=== PATIENT | female | born 2000 | race Caucasian/White ===

== ENCOUNTER → 2018-08-12 13:48 | Outpatient (CLI) | payer OTHER, SELFPAY ==
--- NOTE | 2018-08-12 13:49 | US_ITS ---
US transvaginal HISTORY: Pelvic pain, painful intercourse ITS.REASON: PELVIC PAIN ORDERING PHYSICIAN: Kevin Mccoy MD PATIENT AGE: 18 years Comparison: None FINDINGS: The uterus is 7.3 x 4 x 5.6 cm with a combined endometrial thickness of 1 cm. The uterus is retroverted. There is fluid within the endometrial cavity with slight increased echogenicity. Right ovary is 3 x 3 cm. Left ovary is 3.4 x 2.4 cm. There are multiple bilateral ovarian follicles. There is a small fluid around the uterus. IMPRESSION: 1. Retroverted uterus with fluid in the endometrial cavity. 2. Polycystic appearance of the ovaries small amount fluid in the pelvis
== END ==
PROVIDERS: PCP Family Medicine; Visit Provider Obstetrics & Gynecology
DX: R10.2 Pelvic and perineal pain (principal)
CPT/HCPCS: 76830

== ENCOUNTER → 2018-08-16 11:31 | Outpatient (CLI) | payer OTHER, SELFPAY ==
[2018-08-16 12:41] LABS: Thyroid Stimulating Hormone 1.21 uIU/ml (0.516-4.13)
[2018-08-20 09:54] LABS: Prolactin 20.1 ng/mL (4.8-23.3)
== END ==
PROVIDERS: Visit Provider Obstetrics & Gynecology
DX: N64.3 Galactorrhea not associated with childbirth (principal); N39.0 Urinary tract infection, site not specified
CPT/HCPCS: 36415; 84146; 84443; 87086

== ENCOUNTER 2019-10-16 14:13 | Emergency (ER) | payer OTHER, SELFPAY ==
[2019-10-16 14:20] VITALS: BP 118/75; PULSE 93; RESP 18; TEMP 36.5; O2SAT 100; BMI 21.8
--- NOTE | 2019-10-16 14:38 | HMH.COUGH ---
Cough Clinic HPI - History of Present Illness HPI:: 19 year old female presents to the cough clinic complaining of a 6 day history of nasal congestion, sore throat and cough. She had a fever on the first day of her symptoms of 101.8. She has no sick contacts. Home Medications: Home Medications Medication Instructions Recorded Confirmed Type Cefdinir [Omnicef 300mg Capsule] 300 mg PO BID #14 cap 10/16/19 Rx Allergies/Adverse Reactions: Allergies Allergy/AdvReac Type Severity Reaction Status Date / Time No Known Allergies Allergy Verified 03/01/19 14:02 Cough Clinic Triage - Symptoms Fever History: Yes (101.8) Chills: No Myalgia: No Nasal Drainage: Yes Sore Throat: Yes Productive Cough: Yes Non-productive Cough: No Ear or Sinus Pain: No Joint Pain: No Chest Pain: No Rash: No Shortness of Breath: No Nausea or Vomitting: No Headache: No Abdominal Pain: No Diarrhea: No - Exposure History Foreign Travel: No Direct Contact with COVID-19 Patient: No - Risk Factors Greater than 60 Years Old: No COPD: No Diabetes: No Heart Disease: No Home Oxygen Use: No Chronic Renal Disease: No Chronic Liver Disease: No Neurologic/Neurodevelopmental/intellectual disability: No Other Chronic Diseases: No If Female, currently : No Current Smoker: No Former Smoker: No Cough Clinic History Other Surgeries: Yes: No Previous Surgery Amputation: No Fractures: No Comment: P* C/S---09/2016 - Social History Smoking Status: Current every day smoker Alcohol Intake: never Alcohol Intake Frequency:: other Substance Use Type: denies use Occupational Status: unemployed Housing: house Household Members: family Family Hx:: No significant family history - Gastrointestinal Gastrointestingal: Denies: nausea, vomiting - Neurologic Neurologic: Denies dizziness Cough Clinic Exam - General General appearance: alert, in no apparent distress - Head Head exam: atraumatic, normocephalic, normal inspection - Eye Eye exam: Present: normal appearance, PERRL, EOMI - ENT ENT exam: Present: normal exam, mucous membranes moist, TM's normal bilaterally, normal external ear exam - Expanded ENT Exam Throat exam: Present: tonsillar erythema - Neck Neck exam: Present: normal inspection, full ROM, trachea midline, lymphadenopathy. Absent: meningismus - Respiratory Respiratory exam: Present: normal lung sounds bilaterally. Absent: respiratory distress - Cardiovascular Cardiovascular exam: Present: regular rate, normal rhythm. Absent: JVD - Extremities Exam Extremities exam: Present: normal inspection, full ROM, normal capillary refill. Absent: calf tenderness - Neurological Exam Neurological exam: Present: alert, oriented X3 - Skin Skin exam: Present: warm, dry, intact, normal color - Lymphatic Lymphatic Findings: no adenopathy Cough Clinic MDM Vital Signs: 10/16/19 14:20 10/16/19 15:02 Temperature 97.7 F 97.7 F Temperature Source Oral Oral Pulse Rate 93 H Pulse Rate [Right Brachial] 93 H Respiratory Rate 18 18 Blood Pressure 118/75 Blood Pressure [Right Arm] 118/75 Blood Pressure Mean [Right Arm] 89 Blood Pressure Source Automatic Cuff Blood Pressure Source [Right Arm] Automatic Cuff Blood Pressure Position Sitting Blood Pressure Position [Right Arm] Sitting 02 Sat by Pulse Oximetry 100 Oxygen Delivery Method Room Air - Lab Data Lab results reviewed: Yes: I reviewed the patient's lab results. Lab Results 10/16/19 14:28: WBC 11.4 H, RBC 4.04 L, Hgb 11.1 L, Hct 35.3 L, MCV 87.4, MCH 27.6, MCHC 31.6 L, RDW 12.5, Plt Count 386, MPV 8.5, Neut % (Auto) 77.6, Lymph % (Auto) 16.1, [place] % (Auto) 4.5, Eos % (Auto) 1.3, Baso % (Auto) 0.5, Neut # (Auto) 8.8 H, Lymph # (Auto) 1.8, [place] # (Auto) 0.5, Eos # (Auto) 0.2, Baso # (Auto) 0.1 10/16/19 14:28: Influenza Type A Ag Negative, Influenza Type B Ag Negative 10/16/19 14:28: Group A Strep Rapid Negative Orders (Tests/Meds):
[2019-10-16 14:40] LABS: Basophils # 0.1 K/mm3 (0-0.2); Basophils % 0.5 % (0.1-2.0); Eosinophils # 0.2 K/mm3 (0.0-0.4); Eosinophils % 1.3 % (0.1-12.0); Hematocrit 35.3 % (37.0-47.0); Hemoglobin 11.1 g/dL (12.2-16.2); Lymphocytes # 1.8 K/mm3 (0.7-4.5); Lymphocytes % 16.1 % (10-50); Mean Corpuscular HGB Conc 31.6 g/dL (31.8-35.4); Mean Corpuscular Hemoglobin 27.6 pg (27.0-31.2); Mean Corpuscular Volume 87.4 fl (81-99); Mean Platelet Volume 8.5 fl (7.4-10.4); Monocytes # 0.5 K/mm3 (0.1-1.0); Monocytes % 4.5 % (1.7-9.3); Neutrophils # 8.8 K/mm3 (1.8-7.8); Neutrophils % 77.6 % (37.0-80.0); Platelet Count 386 K/mm3 (142-424); Red Blood Count 4.04 M/mm3 (4.20-5.40); Red Cell Distribution Width 12.5 % (11.5-17.5); White Blood Count 11.4 K/mm3 (4.8-10.8)
[2019-10-16 14:41] LABS: Strep Scrn Group A (Rapid) Negative (Negative)
[2019-10-16 15:02] VITALS: BP 118/75; PULSE 93; RESP 18; TEMP 36.5; O2SAT 100
== END 2019-10-16 15:03 | disposition home or self-care (01) ==
PROVIDERS: Emergency Provider Family Medicine; PCP Pediatrics
DX: J06.9 Acute upper respiratory infection, unspecified (principal)
CPT/HCPCS: 36415; 85025; 87275; 87276; 87430; 99201; 99213

== ENCOUNTER 2019-10-25 14:43 | Emergency (ER) | payer OTHER, SELFPAY ==
[2019-10-25 14:54] VITALS: BP 115/74; PULSE 74; RESP 18; TEMP 36.9; O2SAT 100; BMI 21.8
[2019-10-25 15:24] LABS: Basophils # 0.1 K/mm3 (0-0.2); Eosinophils # 0.2 K/mm3 (0.0-0.4); Eosinophils % 1.5 % (0.1-12.0); Hematocrit 38.3 % (37.0-47.0); Hemoglobin 13.1 g/dL (12.2-16.2); Lymphocytes # 1.9 K/mm3 (0.7-4.5); Lymphocytes % 16.5 % (10-50); Mean Corpuscular HGB Conc 34.1 g/dL (31.8-35.4); Mean Corpuscular Hemoglobin 28.9 pg (27.0-31.2); Mean Corpuscular Volume 84.7 fl (81-99); Mean Platelet Volume 7.3 fl (7.4-10.4); Monocytes # 0.5 K/mm3 (0.1-1.0); Monocytes % 4.7 % (1.7-9.3); Neutrophils # 8.6 K/mm3 (1.8-7.8); Neutrophils % 76.3 % (37.0-80.0); Platelet Count 484 K/mm3 (142-424); Red Blood Count 4.53 M/mm3 (4.20-5.40); Red Cell Distribution Width 12.2 % (11.5-17.5); White Blood Count 11.3 K/mm3 (4.8-10.8)
[2019-10-25 15:31] LABS: Microscopic, Urine URINE MICROSCOPIC (MICROSCOPIC)
[2019-10-25 15:32] LABS: Alanine Aminotransferase 11 U/L (12-78); Albumin Level 4.9 g/dl (3.5-5.0); Albumin/Globulin Ratio 1.5 (1.1-1.8); Alkaline Phosphatase 54 U/L (38-126); Anion Gap 12.7 mEq/L (5-15); Aspartate Amino Transferase 24 U/L (14-36); Bilirubin,Total 0.5 mg/dl (0.2-1.3); Blood Urea Nitrogen 14 mg/dl (7-17); Calcium 10.3 mg/dl (8.4-10.2); Carbon Dioxide 26 mmol/L (22.0-30.0); Chloride 106 mmol/L (98-107); Creatinine Clearance Estimated 115 mL/min (50-200); Estimated Glomerular Filt Rate 126 ml/min (>60); GFR (African American) 153 ML/MIN (>60); Globulin 3.3 g/dL (1.3-3.2); Glucose 83 mg/dl (74-100); Potassium 3.7 mmoL/L (3.5-5.1); Sodium 141 mmol/L (136-145); Total Protein,Serum 8.2 g/dl (6.3-8.2)
[2019-10-25 15:35] LABS: Appearance,Urine CLEAR (Clear); Bilirubin,Urine Negative (Negative); Blood, Urine 1+ (Negative); Color,Urine YELLOW (Yellow); Glucose,Urine (UA) Negative (Negative); Ketones,Urine Negative (Negative); Leukocyte Esterase,Urine 1+ (Negative); Nitrate,Urine Negative (Negative); PH,Urine 7.5 (5.0-8.5); Protein,Urine Negative (Negative); Urine Pregnancy, HCG Qual. Negative (Negative); Urobilinogen,Urine 0.2 EU/dl (0.2)
--- NOTE | 2019-10-25 15:38 | CT_ITS ---
PROCEDURE: CT ABDOMEN PELVIS W CON CLINICAL INDICATION: abd pain Periumbilical pain COMPARISON: No exams were available for comparison TECHNIQUE: IV Contrast: 75ML OPTIRAY 350 Oral Contrast none Axial images obtained with sagittal and coronal reformats. All CT scans at the facility use one or more dose reduction, viz: automated exposure control, ma/kV adjustment per patient size (including targeted exams where dose is matched to indication, i.e. head), or iterative reconstruction technique. FINDINGS: LOWER THORAX: No acute finding ABDOMEN & PELVIS: The liver, spleen, adrenal glands, and pancreas and gallbladder have an unremarkable appearance. No renal or ureteral calculi. Mild prominence of the renal pelves on both sides left greater than right nonspecific. No intestinal obstruction or free air. No evidence of appendicitis. There is a small amount fluid in the pelvis which is nonspecific. No acute bony anomalies. IMPRESSION: No acute finding Dictated by: Sandro Mello MD 10/26/2019 09:12 Electronically signed by Sandro Mello MD in [place] 10/26/2019 09:12
[2019-10-25 15:40] LABS: Squamous Epithelial Cell,Urine 20-50 #/hpf (0-5)
[2019-10-25 15:51] LABS: Amylase 97 U/L (30-110); Lipase 110 U/L (23-300)
--- NOTE | 2019-10-25 16:08 | HMH.EDGENADL ---
ED Disposition Clinical Impression: Periumbilical pain Disposition: Home, Self-Care Condition on Discharge: Good Instructions: DI for Abdominal Pain-Adult Additional Instructions: Ibuprofen or Tylenol for pain. Follow-up urine culture result from your primary care doctor in 2 to 3 days. Additional instructions for ABDOMINAL PAIN: See your physician as soon as possible for further evaluation. Return immediately if worsening abdominal pain, vomiting, shortness of breath, fever, vomiting of blood or abdominal distention. Referrals: Adam Proctor [Primary Care Provider] - Forms: Work/School Release - Critical Care Critical Care Time: No Attestation: On 10/25/19, the high probability of a clinically significant, sudden or life threatening deterioration of the following system(s) required my full and direct attention, intervention and personal management. The time I documented below is in addition to time spent performing reported procedures but includes the following listed in this critical care notation. Medical Decision Making - Medical Records Medical records reviewed: Yes: I reviewed the patient's medical records. - Kelvin Inquiry Pt receiving controlled substance: No Vital Signs: 10/25/19 14:54 Temperature 98.4 F Temperature Source Oral Pulse Rate [Left Brachial] 74 Respiratory Rate 18 Blood Pressure [Left Arm] 115/74 Blood Pressure Mean [Left Arm] 87 Blood Pressure Source [Left Arm] Automatic Cuff Blood Pressure Position [Left Arm] Sitting 02 Sat by Pulse Oximetry 100 Oxygen Delivery Method Room Air - Lab Data Lab results reviewed: Yes: I reviewed the patient's lab results. Lab Results 10/25/19 15:02: Urine Color Yellow, Urine Appearance Clear, Urine pH 7.5, Ur Specific [place] 1.020, Urine Protein Negative, Urine Glucose (UA) Negative, Urine Ketones Negative, Urine Blood 1+, Urine Nitrate Negative, Urine Bilirubin Negative, Urine Urobilinogen 0.2, Ur Leukocyte Esterase 1+ A, Urine RBC 3-5, Urine WBC 5-10, Ur Squamous Epith Cells 20-50, Urine Bacteria None 10/25/19 15:02: Urine HCG, Qual Negative 10/25/19 15:12: WBC 11.3 H, RBC 4.53, Hgb 13.1, Hct 38.3, MCV 84.7, MCH 28.9, MCHC 34.1, RDW 12.2, Plt Count 484 H, MPV 7.3 L, Neut % (Auto) 76.3, Lymph % (Auto) 16.5, [place] % (Auto) 4.7, Eos % (Auto) 1.5, Baso % (Auto) 1.0, Neut # (Auto) 8.6 H, Lymph # (Auto) 1.9, [place] # (Auto) 0.5, Eos # (Auto) 0.2, Baso # (Auto) 0.1 10/25/19 15:12: Sodium 141, Potassium 3.7, Chloride 106, Carbon Dioxide 26, Anion Gap 12.7, BUN 14, Creatinine 0.60, Estimated Creat Clear 115, Estimated GFR 126, Est GFR ( Amer) 153, Glucose 83, Calcium 10.3 H, Total Bilirubin 0.5, AST 24, ALT 11 L, Alkaline Phosphatase 54, Total Protein 8.2, Albumin 4.9, Globulin 3.3 H, Albumin/Globulin Ratio 1.5 10/25/19 15:12: Amylase 97, Lipase 110 Result diagrams: 10/25/19 15:12 10/25/19 15:12 Orders (Tests/Meds): ED MEDICATIONS Discontinued Medications Generic Name Dose Route Start Last Admin Trade Name Freq PRN Reason Stop Dose Admin Ioversol 75 ml 10/25/19 15:53 10/25/19 15:53 Rad-Optiray 350 100ml Vial IV 10/25/19 15:54 75 ml ONCE ONE Administration Protocol Sodium Chloride 10 ml 10/25/19 15:53 10/25/19 15:53 Rad-Saline Flush 10ml Syringe IV 10/25/19 15:54 10 ml ONCE ONE Administration ORDERS Category Date Time Status CT abdomen pelvis w con Stat Cat Scan 10/25/19 15:38 Taken Urine Culture Stat Micro 10/25/19 15:02 Received - CT Data CT Scan: Abdomen, Pelvis Time Received: 16:29 ([facility] fax) ED CT Reviewed: Yes: I have viewed the radiologist's interpretation Findings Narrative: Normal appendix Small bowel wall thickening without surrounding inflammation, which may represent incomplete distention or limited enteritis Small amount of free fluid dependently in the pelvis, nonspecific, but usually physiologic. No localized abscess. No other acute disease seen. General Adult HPI
[2019-10-25 16:51] VITALS: BP 112/64; PULSE 74; RESP 16; TEMP 36.6; O2SAT 98
== END 2019-10-25 16:53 | disposition home or self-care (01) ==
PROVIDERS: Emergency Provider Emergency Medicine; PCP Pediatrics
DX: R10.33 Periumbilical pain (principal)
CPT/HCPCS: 74177; 80053; 81001; 81025; 82150; 83690; 85025; 87086; 99283; Q9967

== ENCOUNTER → 2021-06-30 17:00 | Outpatient (CLI) | payer OTHER, SELFPAY ==
[2021-06-30 19:30] LABS: HCG,Quantitative 626 mIU/ml (0-5.42)
== END ==
PROVIDERS: Visit Provider Nurse Practitioner Obstetrics & Gynecology
DX: Z32.00 Encounter for pregnancy test, result unknown (principal)
CPT/HCPCS: 84702

== ENCOUNTER → 2021-07-18 15:20 | Outpatient (CLI) | payer OTHER, SELFPAY ==
[2021-07-18 15:57] LABS: Basophils # 0.1 K/mm3 (0-0.2); Basophils % 0.9 % (0.1-2.0); Eosinophils # 0.1 K/mm3 (0.0-0.4); Eosinophils % 1.2 % (0.1-12.0); Hematocrit 35.3 % (37.0-47.0); Hemoglobin 11.3 g/dL (12.2-16.2); Lymphocytes # 0.5 K/mm3 (0.7-4.5); Lymphocytes % 6.2 % (10-50); Mean Corpuscular HGB Conc 32.1 g/dL (31.8-35.4); Mean Corpuscular Hemoglobin 29.2 pg (27.0-31.2); Mean Corpuscular Volume 91.1 fl (81-99); Mean Platelet Volume 7.8 fl (7.4-10.4); Monocytes # 0.5 K/mm3 (0.1-1.0); Monocytes % 6.2 % (1.7-9.3); Neutrophils # 7.1 K/mm3 (1.8-7.8); Neutrophils % 85.5 % (37.0-80.0); Platelet Count 403 K/mm3 (142-424); Red Blood Count 3.88 M/mm3 (4.20-5.40); Red Cell Distribution Width 13.2 % (11.5-17.5); White Blood Count 8.3 K/mm3 (4.8-10.8)
[2021-07-18 16:01] LABS: MANUAL DIFFERENTIAL MANUAL DIFFERENTIAL (MANUAL DIFF)
[2021-07-18 16:56] LABS: Eosinophils % 1 % (0-3); Lymphocytes % 12 % (10-50); Monocytes % 9 % (2-9); Neutrophils % 75 % (42-76); Platelet Estimate Normal; RBC Morphology Normal; Total Cells Counted 100
[2021-07-20 08:14] LABS: HIV Screen 4th Generation wRfx Non Reactive (Non Reactive); HSV 2 IgG, Type Spec <0.91 index (0.00-0.90); Rubella Antibodies, IgG 1.16 index (Immune >0.99)
[2021-07-20 09:13] LABS: Hepatitis B Surface Antigen Negative (Negative); Hepatitis C Antibody <0.1 s/co ratio (0.0-0.9)
[2021-07-20 11:38] LABS: Rapid Plasma Reagin Ab Titer Non Reactive (NonRea<1:1)
== END ==
PROVIDERS: Visit Provider Nurse Practitioner Obstetrics & Gynecology
DX: Z34.90 Encounter for supervision of normal pregnancy, unspecified, unspecified trimester (principal)
CPT/HCPCS: 36415; 85007; 85025; 86592; 86695; 86703; 86762; 86790; 86850; 87340; 87380; G0432

== ENCOUNTER 2021-07-19 14:41 | Emergency (ER) | payer OTHER, SELFPAY ==
[2021-07-19 14:48] VITALS: BP 97/59; PULSE 63; RESP 16; TEMP 37.3; O2SAT 98; BMI 26.0
[2021-07-19 15:00] VITALS: BP 97/59; PULSE 63; RESP 16; TEMP 37.3; O2SAT 98; BMI 25.9
[2021-07-19 15:18] LABS: UTC Strep Screen (Rapid) Negative (Negative)
[2021-07-19 15:19] LABS: UTC Influenza A Antigen Negative (Negative); UTC Influenza B Antigen Negative (Negative)
--- NOTE | 2021-07-19 15:25 | HMH.EDUTC ---
[facility] Disposition Clinical Impression: Viral syndrome Disposition: Home, Self-Care Condition on Discharge: Good Instructions: DI for Fever (Symptom) -- Adult, Promethazine, DI for COVID-19 (Suspected or Confirmed ), Preventing the Spread of Coronavirus Discharge Instructions Additional Instructions: *Monitor Temp, Over the counter Motrin or Tylenol as directed/as needed Tylenol every 4 hours and Motrin every 6 hours (as long as your family doctor has told you that you can take it) for fever or pain. and straight to ER if unable to lower temp less than 101.0 after medication given *Warm salt water gargles may help to soothe the throat *Throat Lozenges *Warm fluids like tea with honey may help to soothe the throat *Sleep elevated *Humidifier/Vaporizer Take Phenergan as directed by your OBGYN if you have Nausea and Vomiting Make sure to drink plenty of fluids Your throat swab was sent for culture. Those results are typically sent to your primary care. Be sure to follow up in 2-3 days with your family doctor/primary care physician if no improvement so they can review those result and treat if necessary. If you don?t have a primary care doctor, I recommend you get one but in the mean time, you will have to return to a walk in clinic Follow up IMMEDIATELY for new or worsening symptoms or no Noticeable improvement over the next 48-72 hours. 911 for difficulty breathing or swallowing You were tested for today for COVID19 your test result should be back in the next 24-48 hours, you may check your COVID test result on the [facility] My Health Portal if you have trouble logging on you may call support for assistance You was given a handout with instructions for Self Quarantine and Self isolation for while you wait on test results and what to do if they are positive If you are positive the Health Dept will be contacting you also Make sure to take your Vitamins Vit. C Vit D and Zinc if you can take them Referrals: Erica Burton [Primary Care Provider] - As needed Forms: Work/School Release Medical Decision Making - Kelvin Inquiry Pt receiving controlled substance: No Kelvin was queried for this patient: No Vital Signs: 07/19/21 14:48 07/19/21 15:00 Temperature 99.1 F 99.1 F Temperature Source Oral Oral Pulse Rate [Radial] 63 63 Respiratory Rate 16 16 Blood Pressure [Right Arm] 97/59 L 97/59 L Blood Pressure Mean [Right Arm] 71 71 Blood Pressure Source [Right Arm] Automatic Cuff Blood Pressure Position [Right Arm] Sitting Sitting 02 Sat by Pulse Oximetry 98 98 Oxygen Delivery Method Room Air Room Air - Lab Data Lab results reviewed: Yes: I reviewed the patient's lab results. Lab Results 07/19/21 15:12: Influenza Type A Ag Negative, Influenza Type B Ag Negative 07/19/21 15:12: Strep Scn Rapid Clinic Negative Orders (Tests/Meds): ORDERS Category Date Time Status Covid-19 Nasal PCR ([facility]) Routine Lab 07/19/21 15:12 Received Strep Screen Confirmation Routine Micro 07/19/21 15:12 Received [facility] HPI - General Stated complaint: fever,sore throat,cough Time Seen by Provider: 07/19/21 15:26 Mode of Arrival: Ambulatory Source of Information: Patient Limitations: No Limitations Description of Symptoms (Recalled from Triage Doc. by RN): TO ED PER [facility] WITH C/O FEVER, CHILLS, GENERALIZED BODY ACHES, COUGH, SORETHROAT, HEADACHE STARTING YESTERDAY. PT STATES +PREG SEEN BY DR MARTINEZ YESTERDAY TOLD APPROX 7 WEEKS PREG. PT DENIES ANY ABD PAIN, VAG DISCHARGE. - History of Present Illness Provider Complaint: Patient state that she is 7wks OB States that she was fine yesterday and seen her OBGYN and then after getting home she started feeling achy all over, having fever, chills body aches sore throat and headache like she had the flu States that she has made suire to try to drink plenty of fluids but today she was still having fever on and off and feeling achy so she came in to get checked - Related Data Home Medications
[2021-07-19 15:55] VITALS: BP 102/60; PULSE 63; RESP 16; TEMP 37.3; O2SAT 98
== END 2021-07-19 16:01 | disposition home or self-care (01) ==
LOC: ER 14:49 → UTC 14:49
PROVIDERS: Emergency Provider Nurse Practitioner; PCP Family Medicine
DX: U07.1 COVID-19 (principal); B34.9 Viral infection, unspecified
CPT/HCPCS: 87804; 87880; 99203; C9803; G0463; U0003; U0005

== ENCOUNTER → 2021-07-27 13:01 | Outpatient (CLI) | payer OTHER, SELFPAY ==
--- NOTE | 2021-07-27 13:01 | US_ITS ---
FINAL REPORT CLINICAL HISTORY: US OB Before 14wks for DATES/Confirmation FINDINGS: TRANSABDOMINAL ULTRASOUND, Single intrauterine is present. A yolk sac is present. Cardiac activity is confirmed at 157 beats per minute. Appropriate amount of fluid is present. The ovaries are within normal limits. Growth parameters are as follows: CRL: 1.8 cm consistent with 8 weeks 3 days. Estimated gestational age: 8 weeks 3 days. IMPRESSION: Single living IUP with estimated gestational age of 8 weeks 3 days. Reviewed, Interpreted and Dictated by Messi Leon MD Transcribed by Feroz Owen Authenticated by Messi Leon MD on 07/27/2021 03:51:31 PM [facility]
== END ==
PROVIDERS: PCP Family Medicine; Visit Provider Nurse Practitioner Obstetrics & Gynecology
DX: O26.841 Uterine size-date discrepancy, first trimester (principal)
CPT/HCPCS: 76801

== ENCOUNTER → 2021-09-13 15:08 | Outpatient (CLI) | payer OTHER, SELFPAY | PROVIDERS: Visit Provider Nurse Practitioner Obstetrics & Gynecology | DX: Z34.90 Encounter for supervision of normal pregnancy, unspecified, unspecified trimester (principal); Z3A.15 15 weeks gestation of pregnancy | CPT/HCPCS: 36415 ==

== ENCOUNTER 2021-09-19 19:06 | Emergency (ER) | payer OTHER, SELFPAY ==
[2021-09-19 19:40] VITALS: BP 110/61; PULSE 109; RESP 16; TEMP 37.6; O2SAT 99; BMI 26.6
--- NOTE | 2021-09-19 19:54 | HMH.EDUTC ---
[facility] [place] Clinical Impression: Gastroenteritis Qualifiers: Weeks of gestation: 16 weeks Qualified Code(s): Z3A.16 - 16 weeks gestation of Disposition: Home, Self-Care Condition on Discharge: Good Instructions: DI for Viral Gastroenteritis -- Adult, Promethazine Additional Instructions: Drink plenty of fluids. Take tylenol for fever. Take the medications as directed. Follow up with your heavy repairer doctor. Call Dr. Phan's office in the morning to let them know you are having these symptoms. Also, follow up with your regular doctor. GO TO THE ER FOR ANY WORSENING SYMPTOMS Prescriptions: Promethazine HCl [Phenergan 25mg tab] 25 mg PO Q6H PRN #20 tab PRN Reason: Nausea And Vomiting Transmission Status: Received by [id number] Referrals: Erica Burton [Primary Care Provider] - Forms: Work/School Release Time of Disposition: 20:36 Medical Decision Making - Medical Records Medical records reviewed: No: I reviewed the patient's medical records. - Kelvin Inquiry Pt receiving controlled substance: No Vital Signs: 09/19/21 19:40 09/19/21 20:40 Temperature 99.6 F 98.9 F Temperature Source Oral Oral Pulse Rate 104 H Pulse Rate [Left Radial] 109 H Respiratory Rate 16 17 Blood Pressure 112/70 Blood Pressure [Right Arm] 110/61 Blood Pressure Mean [Right Arm] 77 02 Sat by Pulse Oximetry 99 Oxygen Delivery Method Room Air Orders (Tests/Meds): ED MEDICATIONS Discontinued Medications Generic Name Dose Route Start Last Admin Trade Name Freq PRN Reason Stop Dose Admin Promethazine HCl 25 mg 09/19/21 20:23 09/19/21 20:31 Promethazine Hcl 25mg/Ml 1ml Vial IM 09/19/21 20:24 25 mg ONCE ONE Administration Medical Decision Narrative: heart rate obtained with doppler is 152 and regular. [facility] HPI - General Stated complaint: vomiting,stomach Time Seen by Provider: 09/19/21 19:54 Mode of Arrival: Ambulatory Source of Information: Patient Limitations: No Limitations Description of Symptoms (Recalled from Triage Doc. by RN): pt to [facility] c/o vomiting since this morning HEENT Symptoms (Recalled from RN notes): No Resp Symptoms (Recalled from RN notes): No Skin Symptoms (Recalled from RN notes): No MS Symptoms (Recalled from RN notes): No Functional Status (Recalled from RN notes): na - History of Present Illness Provider Complaint: She states that since this morning she has had vomiting and diarrhea. Her had the same symptoms 3 days ago. She believes she has a stomach virus and she request a work excuse. She is 16 weeks . She denies any abdominal pain, back pain, vaginal bleeding or any other symptoms. She refuses to be transferred to the er. - Related Data Home Medications Medication Instructions Recorded Confirmed PNV 153-FA 400 mcg-om3 35 mg-dha tab PO 07/18/21 09/13/21 25 mg-epa 5 mg-fish oil chew tablet Previous Rx's Medication Instructions Recorded promethazine 12.5 mg tablet 12.5 mg PO TID #30 tab 08/16/21 Promethazine HCl [Phenergan 25mg 25 mg PO Q6H PRN #20 tab 09/19/21 tab] Allergies Allergy/AdvReac Type Severity Reaction Status Date / Time No Known Allergies Allergy Verified 09/13/21 14:04 - Worker's Comp Is this a Worker's Comp case?: No [facility] History - Hepatitis A Screen Drug use history?: No High risk sexual behaviors?: No History of sexually transmitted infection?: No Currently employed?: No Childcare worker?: No Do you have indoor plumbing?: Yes Do you have electricity?: Yes Attestation statement:: This patient has been screened for Hepatitis A risk factors. I have reviewed the patient's past medical history: Yes Other Surgeries: Yes: No Previous Surgery, Amputation: No Fractures: No Comment: P* C/S---09/2016 - Social History Smoking Status: Never smoker Alcohol Intake: never Alcohol Intake Frequency:: other Substance Use Type:
[2021-09-19 20:40] VITALS: BP 112/70; PULSE 104; RESP 17; TEMP 37.2; O2SAT 99
== END 2021-09-19 20:41 | disposition home or self-care (01) ==
PROVIDERS: Emergency Provider Nurse Practitioner Family; PCP Family Medicine
DX: K52.9 Noninfective gastroenteritis and colitis, unspecified (principal); Z3A.16 16 weeks gestation of pregnancy
CPT/HCPCS: 96372; 99213; G0463

== ENCOUNTER → 2021-10-17 13:15 | Outpatient (CLI) | payer OTHER, SELFPAY ==
--- NOTE | 2021-10-17 13:15 | US_ITS ---
FINAL REPORT CLINICAL HISTORY: US OB Complete Anatomy Scan 20 wk + FINDINGS: There is a single live intrauterine gestation. Presentation is breech. The cervix is closed and measures 4.4 cm. Placenta is anterior. Cardiac activity is confirmed at 146 bpm. Fetus is active. Three-vessel cord with satisfactory umbilical cord insertion. Four-chamber heart is noted. brain and ventricles are unremarkable. Chest and diaphragm are unremarkable. ABDOMEN: Both kidneys are unremarkable. Stomach is unremarkable. SPINE: No anomalies identified. Both arms and legs noted. AMNIOTIC FLUID: Appropriate amount. MEASUREMENTS: ULTRASOUND AGE: 20 weeks 3 days. GESTATION AGE: 20 weeks 1 days. ESTIMATED WEIGHT: 355 g GROWTH PERCENTILE: 63% BPD: 4.8 cm consistent with 20 weeks 5 days. OFD: 6.1 cm consistent with 20 weeks 5 days. HC: 17.3 cm consistent with 19 weeks 6 days. AC: 15.3 cm consistent with 20 weeks 4 days. FL: 3.4 cm consistent with 20 weeks 4 days. CEREBELLUM: 2.0 cm consistent with 20 weeks 4 days. HUMERUS: 3.2 cm consistent with 20 weeks 5 days. Nuchal fold: 2.7 cm HC/AC: 1.13 CI: 79% FL/BPD: 69% FL/AC: 22% IMPRESSION: Single living IUP with an ultrasound age of 20 weeks 3 days. Reviewed, Interpreted and Dictated by Que Galeano III, MD Transcribed by Feroz Owen Authenticated by Que Galeano III, MD on 10/17/2021 03:18:[address] [facility]
== END ==
PROVIDERS: PCP Family Medicine; Visit Provider Nurse Practitioner Obstetrics & Gynecology
DX: Z36.0 Encounter for antenatal screening for chromosomal anomalies (principal)
CPT/HCPCS: 76811

== ENCOUNTER → 2021-11-30 14:46 | Outpatient (CLI) | payer OTHER, SELFPAY | PROVIDERS: PCP Family Medicine; Visit Provider Nurse Practitioner Obstetrics & Gynecology | DX: Z34.90 Encounter for supervision of normal pregnancy, unspecified, unspecified trimester (principal) ==

== ENCOUNTER → 2021-12-01 14:27 | Outpatient (CLI) | payer OTHER, SELFPAY ==
[2021-12-01 15:11] LABS: Glucose,Fasting 80 mg/dl (74-100)
[2021-12-01 16:53] LABS: Glucose 1 Hour 158 mg/dL (74-100)
== END ==
PROVIDERS: PCP Family Medicine; Visit Provider Nurse Practitioner Obstetrics & Gynecology
DX: Z34.90 Encounter for supervision of normal pregnancy, unspecified, unspecified trimester (principal)
CPT/HCPCS: 36415; 82951

== ENCOUNTER → 2021-12-03 08:56 | Outpatient (CLI) | payer OTHER, SELFPAY ==
[2021-12-03 09:36] LABS: Glucose,Fasting 93 mg/dl (74-100)
[2021-12-03 11:44] LABS: Glucose 1 Hour 170 mg/dL (74-100)
[2021-12-03 11:59] LABS: Glucose 2 Hour 167 mg/dL (74-100)
[2021-12-03 14:14] LABS: Glucose 3 Hour 159 mg/dL (74-100)
== END ==
PROVIDERS: PCP Family Medicine; Visit Provider Nurse Practitioner Obstetrics & Gynecology
DX: Z34.90 Encounter for supervision of normal pregnancy, unspecified, unspecified trimester (principal)
CPT/HCPCS: 36415; 82951

== ENCOUNTER → 2021-12-19 12:01 | Outpatient (CLI) | payer OTHER, SELFPAY | PROVIDERS: Visit Provider Nurse Practitioner Obstetrics & Gynecology | DX: N39.0 Urinary tract infection, site not specified (principal) | CPT/HCPCS: 87086 ==

== ENCOUNTER → 2022-02-13 13:37 | Outpatient (CLI) | payer OTHER, SELFPAY ==
--- NOTE | 2022-02-13 13:37 | US_ITS ---
FINAL REPORT CLINICAL HISTORY: LGA; h/o gestational diabetes with this FINDINGS: There is a single live intrauterine gestation. Presentation is cephalic. The cervix is closed and measures 4.9 cm. Placenta is anterior, grade 2.. Cardiac activity is confirmed at 146 bpm. Fetus is active. CAREN: 13 cm, normal MEASUREMENTS: ULTRASOUND AGE: 31 weeks 1 day days. GESTATION AGE: 37 weeks 1 day days. ESTIMATED WEIGHT: 6 lb 13 oz GROWTH PERCENTILE: 54 BPD: 9.22 cm, 37 weeks 4 days. OFD: 11.21 cm, 37 weeks 1 days. HC: 32.24 cm, 36 weeks 3 days. AC: 33.18 cm, 37 weeks 1 days. FL: 7.24 cm, 37 weeks 1 days. HC/AC: 0.97 CI: 82% FL/BPD: 79% FL/AC: 22% BREATHIN MOVEMENT: 2 TONE: 2 FLUID VOLUME: 2 BPP SCORE: 8/8 IMPRESSION: Single living IUP with an ultrasound age of 31 weeks 1 days. BPP SCORE: 8/8 Reviewed, Interpreted and Dictated by Que Galeano III, MD Transcribed by Emeli Gonzalez Authenticated and . [facility]
== END ==
PROVIDERS: PCP Family Medicine; Visit Provider Nurse Practitioner Obstetrics & Gynecology
DX: O36.60X0 Maternal care for excessive fetal growth, unspecified trimester, not applicable or unspecified (principal)
CPT/HCPCS: 76811; 76819; 76820

== ENCOUNTER → 2022-02-14 13:29 | Outpatient (CLI) | payer OTHER, SELFPAY | PROVIDERS: Visit Provider Nurse Practitioner Obstetrics & Gynecology | DX: Z34.90 Encounter for supervision of normal pregnancy, unspecified, unspecified trimester (principal) | CPT/HCPCS: 86403 ==

== ENCOUNTER → 2022-02-25 11:44 | Outpatient (CLI) | payer OTHER, SELFPAY ==
[2022-02-25 12:13] LABS: Basophils # 0.2 K/mm3 (0-0.2); Basophils % 2.6 % (0.1-2.0); Eosinophils # 0.1 K/mm3 (0.0-0.4); Eosinophils % 1.2 % (0.1-12.0); Hematocrit 40.1 % (37.0-47.0); Lymphocytes # 1.3 K/mm3 (0.7-4.5); Lymphocytes % 15.2 % (10-50); Mean Corpuscular HGB Conc 32.3 g/dL (31.8-35.4); Mean Corpuscular Hemoglobin 30.3 pg (27.0-31.2); Mean Corpuscular Volume 93.8 fl (81-99); Mean Platelet Volume 8.5 fl (7.4-10.4); Monocytes # 0.6 K/mm3 (0.1-1.0); Monocytes % 6.7 % (1.7-9.3); Neutrophils # 6.5 K/mm3 (1.8-7.8); Neutrophils % 74.4 % (37.0-80.0); Platelet Count 363 K/mm3 (142-424); Red Blood Count 4.27 M/mm3 (4.20-5.40); Red Cell Distribution Width 14.4 % (11.5-17.5); White Blood Count 8.8 K/mm3 (4.8-10.8)
[2022-02-25 12:48] LABS: Alanine Aminotransferase 14 U/L (12-78); Albumin Level 3.4 g/dl (3.5-5.0); Albumin/Globulin Ratio 1.3 (1.1-1.8); Alkaline Phosphatase 263 U/L (38-126); Anion Gap 8.9 mEq/L (5-15); Aspartate Amino Transferase 25 U/L (14-36); Bilirubin,Total 0.2 mg/dl (0.2-1.3); Calcium 9.4 mg/dl (8.4-10.2); Carbon Dioxide 23 mmol/L (22.0-30.0); Chloride 107 mmol/L (98-107); Estimated Glomerular Filt Rate 196 ml/min (>60); GFR (African American) 237 ML/MIN (>60); Globulin 2.7 g/dL (1.3-3.2); Glucose 108 mg/dl (74-100); Potassium 3.9 mmoL/L (3.5-5.1); Sodium 135 mmol/L (136-145); Total Protein,Serum 6.1 g/dl (6.3-8.2)
[2022-02-25 13:06] LABS: Blood Urea Nitrogen < 2 mg/dl (7-17)
== END ==
PROVIDERS: PCP Family Medicine; Visit Provider Nurse Practitioner Obstetrics & Gynecology
DX: N92.0 Excessive and frequent menstruation with regular cycle (principal); Z3A.37 37 weeks gestation of pregnancy; Z34.90 Encounter for supervision of normal pregnancy, unspecified, unspecified trimester
CPT/HCPCS: 36415; 80053; 85025; C9803; U0003; U0005

== ENCOUNTER 2022-02-27 04:49 | Inpatient (IN) | payer OTHER, SELFPAY ==
[2022-02-27] VITALS (15 sets, daily range): BP systolic 114–135; BP diastolic 74–96; PULSE 75–113; RESP 10–18; TEMP 36.7–36.8; O2SAT 97–100; BMI 30.9
[2022-02-27 05:43] LABS: Coronavirus 19, PCR Not Detected (NotDetected); Influenza A, PCR Not Detected (NotDetected); Influenza B, PCR Not Detected (NotDetected); Microscopic, Urine URINE MICROSCOPIC (MICROSCOPIC)
[2022-02-27 05:45] LABS: Appearance,Urine CLEAR (Clear); Bilirubin,Urine Negative (Negative); Blood, Urine Negative (Negative); Color,Urine YELLOW (Yellow); Glucose,Urine (UA) Negative (Negative); Ketones,Urine Negative (Negative); Leukocyte Esterase,Urine 2+ (Negative); Nitrate,Urine Negative (Negative); Protein,Urine Negative (Negative); Urobilinogen,Urine 0.2 EU/dl (0.2)
[2022-02-27 05:48] LABS: Amorphous Sediment,Urine 1+ /lpf
[2022-02-27 05:59] LABS: Barbiturates Screen,Urine Negative ng/ml (<200)
[2022-02-27 06:00] LABS: Benzodiazepines Screen,Urine Negative ng/ml (<200)
[2022-02-27 06:02] LABS: Amphetamine/Metha Screen,Urine Negative ng/ml (<1000); Cannabinoid Screen,Urine Negative ng/ml (<50); Cocaine Screen,Urine Negative ng/ml (<300); Methadone Screen,Urine Negative ng/ml (<300)
[2022-02-27 06:03] LABS: Opiate Screen,Urine Negative ng/ml (<300)
[2022-02-27 06:04] LABS: Phencyclidine Screen,Urine Negative ng/ml (<25)
--- NOTE | 2022-02-27 07:03 | P.PN_ITS ---
[facility] Social History Smoking Status: Never smoker alcohol intake: never substance use type: denies use current occupational status: unemployed Travel in the last 8 weeks: None household members: family housing: house [facility] Anesthesia Checklist Patient Identification Patient Identification: Arm Band and Verbal (Name & ) Structural Data Admitted From: Inpatient Planned Operative Procedure/s: C/S Consent for Planned Operative Procedure(s) Verified: Yes NPO Status Verified Time NPO: 00:00 Additional verifications Patient : Yes Hx Blood Transfusions: Yes Airway Assessment C-Spine Mobility Assessed: Yes TMJ Mobility Assessed: Yes Dentition: Good Dentition Neurological Assessment Level of Consciousness: Awake Hx Seizures: No Numbness or tingling in extremities: No Anesthesia Plan Anesthesia Risk discussed: Yes Anesthesia Plan: Verified ASA Class: II Anesthesia Type: Spinal
--- NOTE | 2022-02-27 07:20 | HMH.PHAINT1 ---
Pharmacy Intervention Comments: MEDICATION RECONCILIATION COMPLETED ON PATIENT USING EXTERNAL FILL HISTORY FROM PHARMACY. -KINDRA CASAS, EUGENED
--- NOTE | 2022-02-27 09:17 | EXP.OP.NOTE ---
Date of procedure: 02/27/22 Pre-op Diagnosis:: Term , previous section, keloid scar Post-op Diagnosis:: Term , previous section, keloid scar, uterine atony, bladder varicosities, large for gestational age infant Procedure performed:: Repeat lower segment transverse section, removal of keloid scar, B-kingsley suture, Surgeon:: Gordon Phan MD Knapsack Sprayer(s):: Dr. Baker GLASS CUTTER HELPER:: Connor Morejon Anesthesia: spinal Estimated blood loss (mL): 1,130 Clinical Note:: She is a 22-year-old 2 para 1 at 39 weeks gestational age. She is had a previous section and as result of that was offered repeat lower segment transverse section at term. She also had a 1 cm wide keloid previous section scar that I elected to remove at the time of her surgery. Operative findings:: She delivered a liveborn male child at 8:56 AM on the morning of February 27, 2022. The baby weighed 8 pounds 15 ounces and had Apgars of 9 at 1 minute and 9 at 5 minutes. She had uterine atony post surgery with a boggy uterus and this required Methergine as well as a B-kingsley suture. Along the bladder flap she had significant varicosities that were very oozy post surgery. Ovaries appeared polycystic. Tubes appeared normal. She had a 1 cm wide keloid scar along the lower abdomen from her previous section. Operative note:: She was taken to the operating room where spinal anesthesia was found be adequate. She was prepped and draped in normal sterile fashion in the supine position with a leftward tilt. A Gregory catheter was in the bladder. A Pfannenstiel skin incision was made with knife then carried through to the underlying layer of fascia with cautery. I made a crescentic incision around the scar. The scar was removed. The fascia was opened in the midline with cautery and extended laterally using Bennett scissors. Joaquin clamps were applied to the superior aspect of the fascial incision which was tented up and the underlying rectus muscles dissected off using cautery. The Joaquin clamps were then applied to the inferior aspect of the fascial incision which in a similar fashion was tented up and the underlying rectus muscles dissected off using cautery. The rectus muscles were then in the midline, the peritoneum identified, and entered sharply with Metzenbaum scissors. This incision was then extended superiorly and inferiorly with cautery. We had good visualization of the bladder inferiorly. An Jadon retractor was then placed within the abdominal cavity. The bladder peritoneum was then opened in the midline and extended laterally using Metzenbaum scissors. A bladder flap was created digitally. Transverse incision was made through the uterine muscle to the amnion. This incision was then extended laterally using fingers traction. The amnion was entered sharply with knife. There was clear amniotic fluid. The infant's head was then delivered atraumatically. A loose nuchal cord was then reduced. This was followed by the anterior shoulder and the rest of the 's body atraumatically. The oropharynx and nasopharynx were bulb suctioned. The baby was vigorous and we allowed the cord to continue to pulsate for approximately 1 minute. The cord was then doubly clamped and cut. The infant was then handed off to Dr. Moore who assigned Apgars of 9 at 1 minute and 9 at 5 minutes. We then obtained cord blood. Using gentle traction on the cord and countertraction on the fundus I was able to easily deliver the placenta intact. It had a normal three-vessel cord. The uterus was then cleared of clots and debris . The uterine incision was then closed using running 0 Vicryl suture in a locked fashion. A second layer of the same suture was used to imbricate the first layer. The uterus was quite boggy so I elected to place a B-kingsley suture. She also received IM Methergine. There was significant oozing underneath the lul
--- NOTE | 2022-02-27 09:26 | P.PNANES_ITS ---
[facility] Anesthesia Record Part I Anesthesia Record I Intake, IV Amount: 2,000 Estimated blood loss (mL): 1,130 Urine output (mL): 150 Blood Products used (#): none Blood Pressure: 135/96 SaO2: 100 Pulse Rate: 79 Respiratory Rate: 16 Temperature: 98.1 F Patient is:: Awake and Stable Stable to PACU at:: 09:20
[2022-02-27 09:33] LABS: POC Glucose,Bedside 84 (70-110)
--- NOTE | 2022-02-27 10:04 | SUR.PHASEI ---
0940: Pt. QBL 1453. Pt. VS remain stable, pt. is asymptomatic. Moderate blood loss with clots expressed with fundal massage. 0945: Pt. QBL 1518. Pt. vitals remain stable, pt. is asymptomatic. Small blood clots with clots expressed with fundal massage. Dr. Phan called at this time and H&H ordered per protocol. 0956: Lab at bedside for blood draw. 1005: Dr. Phan informed of blood loss. No new orders at this time. Pt. remains stable without complaints. 1015: Detailed report called to OB. Pt. VS remains stable, pt. without any complaints.
[2022-02-27 10:17] LABS: Hematocrit 41.4 % (37.0-47.0); Hemoglobin 13.4 g/dL (12.2-16.2)
[2022-02-27 13:57] LABS: Microscopic,Cath URINE MICROSCOPIC (MICROSCOPIC)
[2022-02-27 14:00] LABS: Appearance,Urine/Cath CLEAR (Clear); Bilirubin,Cath Negative (Negative); Blood, Urine/Cath TRACE-I (Negative); Color,Urine/Cath YELLOW (Yellow); Glucose,Urine/Cath (UA) Negative (Negative); Ketones,Urine/Cath Negative (Negative); Leukocyte Esterase,Cath Negative (Negative); Nitrate,Cath Negative (Negative); Protein,Urine/Cath Negative (Negative); Specific Gravity, Urine/Cath 1.015 (1.005-1.030); Urobilinogen,Cath 0.2 EU/dl (0.2)
[2022-02-27 14:16] LABS: Bacteria,Urine/Cath TRACE /lpf; Squamous Epithelial Ur./Cath Occasional #/hpf (0-5); WBC,Urine/Cath Occasional #/hpf (0-3)
[2022-02-27 16:30] LABS: Hematocrit 33.3 % (37.0-47.0)
[2022-02-27 16:47] LABS: Hemoglobin 12.4 g/dL (12.2-16.2)
[2022-02-28 01:23] LABS: POC Glucose,Bedside 84 (70-110)
[2022-02-28 06:54] LABS: Basophils # 0.1 K/mm3 (0-0.2); Basophils % 0.3 % (0.1-2.0); Eosinophils # 0.1 K/mm3 (0.0-0.4); Eosinophils % 0.6 % (0.1-12.0); Hematocrit 29.8 % (37.0-47.0); Lymphocytes # 1.3 K/mm3 (0.7-4.5); Lymphocytes % 7.7 % (10-50); Mean Corpuscular HGB Conc 32.2 g/dL (31.8-35.4); Mean Corpuscular Hemoglobin 29.1 pg (27.0-31.2); Mean Corpuscular Volume 90.6 fl (81-99); Mean Platelet Volume 7.9 fl (7.4-10.4); Monocytes # 1.1 K/mm3 (0.1-1.0); Monocytes % 6.6 % (1.7-9.3); Neutrophils # 14.5 K/mm3 (1.8-7.8); Neutrophils % 84.8 % (37.0-80.0); Platelet Count 316 K/mm3 (142-424); Red Blood Count 3.29 M/mm3 (4.20-5.40); Red Cell Distribution Width 13.8 % (11.5-17.5); White Blood Count 17.1 K/mm3 (4.8-10.8)
[2022-02-28 07:02] LABS: MANUAL DIFFERENTIAL MANUAL DIFFERENTIAL (MANUAL DIFF)
[2022-02-28 07:05] LABS: Hemoglobin 9.6 g/dL (12.2-16.2)
[2022-02-28 07:18] LABS: Lymphocytes % 14 % (10-50); Monocytes % 5 % (2-9); Neutrophils % 81 % (42-76); Total Cells Counted 100
[2022-02-28 07:19] LABS: Anisocytosis 1+; Hypochromasia 1+; Platelet Estimate Normal
--- NOTE | 2022-02-28 07:19 | EXP.PHA.VTE ---
[facility] Pharmacy VTE Monitoring Patient Demographics Admission date: 02/27/22 Report Date: 02/28/22 Time: 07:19 Patient Allergies No Known Allergies Allergy (Verified 02/21/22 14:20) Height: 1.5 m Weight: 69.4 kg VTE Risk Labs: VTE Related Lab Results Hgb 9.6 g/dL (12.2-16.2) L D 02/28/22 06:35 Hct 29.8 % (37.0-47.0) L 02/28/22 06:35 Plt Count 316 K/mm3 (142-424) 02/28/22 06:35 Prophylaxis VTE Prophylaxis Ordered?: Yes Types of VTE Prophylaxis: IPCS Thigh High Location of Applied Device: Bilateral Lower Extremeties
--- NOTE | 2022-02-28 08:40 | EXP.OB.APHP ---
OB - H&P: HPI Antepartum History of Present Illness Chief complaint: Term , previous section History of present illness: She is a 22-year-old 2 para 1 at 39 weeks gestational age she had a previous section. As result of that she is offered repeat lower segment transverse section at term. History of Present Criteria for establishing EDC:: LMP confirmed by 1st trimester US care: good care Ultrasounds: normal 1st trimester US and normal mid trimester US Obstetrical complications: previous Labs Blood type: A (+) positive Rubella: immune RPR/VDRL: nonreactive GBS status: negative HBsAG: negative PFSH PFS Social History Smoking Status: Never smoker alcohol intake: never substance use type: denies use current occupational status: unemployed Travel in the last 8 weeks: None household members: family housing: house Review of Systems Review of Systems Review of systems:: pertinent systems reviewed and negative unless documented below Meds Home Medications and Allergies Home Medications Medication Instructions Recorded Confirmed Type PNV 153-FA 400 mcg-om3 35 mg-dha 2 tab PO DAILY Supplement 07/18/21 02/27/22 History 25 mg-epa 5 mg-fish oil chew tablet ( Gummies) ferrous sulfate 325 mg (65 mg 325 mg PO DAILY Supplement 02/27/22 02/27/22 History iron) tablet New Prescriptions to Start Prescriptions: Allergies Allergy/AdvReac Type Severity Reaction Status Date / Time No Known Allergies Allergy Verified 02/21/22 14:20 OB - H&P: Exam Physical Exam Vital signs: Temp Pulse Resp BP Pulse Ox 98.1 F 78 15 122/81 100 02/27/22 09:27 02/27/22 10:20 02/27/22 10:20 02/27/22 10:20 02/27/22 10:20 Constitutional no acute distress Routine HEENT Exam Head: Present normocephalic Eye: Present EOMI ENT: Present mucous membranes moist Routine Neck Exam Present supple Routine Chest/Breast/Axilla Exam Chest wall: Absent tenderness Routine Respiratory Exam Present normal respiratory effort and symmetric chest movement; Absent accessory muscle use Routine Cardiovascular Exam Present RRR Routine Abdominal Exam Present soft; Absent tenderness Routine Rectal Exam Patient deferred: visual exam Routine Exam Patient deferred: external exam Routine Extremities Exam Present full ROM; Absent cyanosis Routine Back/Spine/Pelvis Exam Back/Spine: Present full ROM Routine Skin Exam Present intact Routine Neurological Exam Present alert and oriented X3 Routine Psychiatric Exam Present normal affect OB - Results Labs Labs: Short CBC 02/27/22 02/27/22 02/28/22 Range/Units 10:13 16:20 06:35 WBC 17.1 H D (4.8-10.8) K/mm3 Hgb 13.4 12.4 9.6 L D (12.2-16.2) g/dL Hct 41.4 33.3 L 29.8 L (37.0-47.0) % Plt Count 316 (142-424) K/mm3 Urine 02/27/22 Range/Units 07:35 Urine Color Yellow (Yellow) Urine Appearance Clear (Clear) Urine pH 7.0 (5.0-8.5) Ur Specific [place] 1.015 (1.005-1.030) Urine Protein Negative (Negative) Urine Glucose (UA) Negative (Negative) OB - A/P Antepartum (1) History of : Status: Acute (2) Delivery by section: Status: Acute Additional Plan Planning to breastfeed?: Yes Plan: other
--- NOTE | 2022-02-28 16:53 | EXP.PN ---
Subjective *Date: 02/28/22 *Time: 16:55 Interval history: She continues to do well today. She is eating and drinking and ambulating. She is bottlefeeding. Her hemoglobin is 9.6 and it stable. Her blood pressures are stable. Her lochia is normal. Exam Data for Last 24 hours Vital signs and Labs for Last 24 Hours: Temp Pulse Resp BP Pulse Ox 98.1 F 78 15 122/81 100 02/27/22 09:27 02/27/22 10:20 02/27/22 10:20 02/27/22 10:20 02/27/22 10:20 Laboratory Results - last 24 hr 02/27/22 07:09: POC Glucose 84 02/28/22 06:35: WBC 17.1 H D, RBC 3.29 L, Hgb 9.6 L D, Hct 29.8 L, MCV 90.6, MCH 29.1, MCHC 32.2, RDW 13.8, Plt Count 316, MPV 7.9, Neut % (Auto) 84.8 H, Lymph % (Auto) 7.7 L, [place] % (Auto) 6.6, Eos % (Auto) 0.6, Baso % (Auto) 0.3, Neut # (Auto) 14.5 H, Lymph # (Auto) 1.3, [place] # (Auto) 1.1 H, Eos # (Auto) 0.1, Baso # (Auto) 0.1, Total Counted 100, Neutrophils % (Manual) 81 H, Lymphocytes % (Manual) 14, Monocytes % (Manual) 5, Platelet Estimate Normal, RBC Morphology Not Reportable, Hypochromasia 1+, Anisocytosis 1+ I & O for Last 24 hours: Intake & Output 02/26/22 02/27/22 02/28/22 03/01/22 11:59 11:59 11:59 11:59 Intake Total 1999 / 1999 Output Total 300 / 300 1100 / 1100 Balance 1700 / 1700 -1100 / -1100 Weight 153 lb 153 lb Microbiology Reports for the Last 24 Hours: Microbiology 02/27/22 05:35 Urine,Clean Catch Urine Culture - Preliminary Constitutional Constitutional: no acute distress *Routine HEENT Exam Head: Present normocephalic *Routine Abdominal Exam Abdominal: Present soft and surgical scars (Her incision is clean and dry); Absent tenderness Assessment and Plan *Assessment and plan (1) Delivery by section: Status: Acute Category: Surgical (2) History of : Status: Acute Category: Surgical Code(s): Z98.891 - History of uterine scar from previous surgery Assessment and plan all Dx Plan of Treatment: She is doing very well. We will see her back again in the morning and discharge her home tomorrow.
--- NOTE | 2022-03-01 08:22 | EXP.ANES.II ---
[facility] Anesthesia Record Part II Anesthesia Record Part II Discharge Time: 10:20 Destination: Obstetric PACU nurse assessment reviewed?: Yes Patient Condition:: Good Anesthesia Complications:: None Swallowing reflex intact?: Yes Cyanosis?: No Blood Pressure: 122/81 Pulse Rate: 78 Temperature: 98.1 F Mental Status: Alert & Oriented Pain level:: 0 Nausea and/or vomitting:: None Intake, IV Amount: 0
[2022-03-01 08:24] VITALS: BP 122/81; PULSE 78; TEMP 36.7
--- NOTE | 2022-03-01 09:06 | EXP.DC.SUM ---
General Admission date:: 02/27/22 Discharge date: 03/01/22 HPI HPI HPI: She is a 22-year-old 2 para 1 at 39 weeks gestational age. She is had a previous section and as result that was offered repeat lower segment transverse section at term. Hospital Course Hospital Course Hospital Course: February 19, 2022 she underwent a repeat lower segment transverse section. She delivered a liveborn male child at 7:56 AM. Baby weighed 8 pounds 15 ounces and had Apgars of 9 at 1 minute and 9 at 5 minutes. She has done well and has remained afebrile throughout hospitalization. She is eating and drinking and ambulating. She is bottlefeeding but would like to try breast-feeding when she gets home. She had excess blood loss at the time of her surgery but her hemoglobin on discharge was 9.6. She will be discharged home to follow-up with me in approximately 2 weeks time. She will continue with her vitamins and iron. She was given a prescription for Percocet 5/325 number 20 tablets. She was given the usual instructions with respect to limiting her activity, driving and sexual activity. She was given instructions with respect to wound care. Exam Data for Last 24 hours Vital signs and Labs for Last 24 Hours: Temp Pulse Resp BP Pulse Ox 98.1 F 78 15 122/81 100 03/01/22 08:24 03/01/22 08:24 02/27/22 10:20 03/01/22 08:24 02/27/22 10:20 I & O for Last 24 hours: Intake & Output 02/26/22 02/27/22 02/28/22 03/01/22 11:59 11:59 11:59 11:59 Intake Total 1999 / 1999 0 / 0 Output Total 300 / 300 1100 / 1100 Balance 1700 / 1700 -1100 / -1100 0 / 0 Weight 153 lb 153 lb Microbiology Reports for the Last 24 Hours: Microbiology 02/27/22 05:35 Urine,Clean Catch Urine Culture - Preliminary Constitutional Constitutional: no acute distress *Routine HEENT Exam Head: Present normocephalic Results Data Completed and Pending Labs on day of discharge: Preliminary micro results at discharge 02/27/22 05:35 Urine Culture - Preliminary Urine,Clean Catch DS: Diagnosis Discharge Diagnosis (1) Delivery by section: Status: Acute (2) History of : Status: Acute Meds Home Medications and Allergies Home Medications Medication Instructions Recorded Confirmed Type PNV 153-FA 400 mcg-om3 35 mg-dha 2 tab PO DAILY Supplement 07/18/21 02/27/22 History 25 mg-epa 5 mg-fish oil chew tablet ( Gummies) ferrous sulfate 325 mg (65 mg 325 mg PO DAILY Supplement 02/27/22 02/27/22 History iron) tablet oxycodone-acetaminophen 5 mg-325 1 tab PO Q4-6H PRN severe pain. 03/01/22 Rx mg tablet (Percocet) #20 tabs New Prescriptions to Start Prescriptions: oxycodone-acetaminophen [Percocet] Gordon Phan Allergies Allergy/AdvReac Type Severity Reaction Status Date / Time No Known Allergies Allergy Verified 02/21/22 14:20 Discharge Plan Disposition Patient Disposition: Home, Self-Care Discharge Order Discharge Orders: Discharge Order (Routine); Ordered 03/01/22 Ordered By: Gordon Phan Follow up Plan Prescriptions/Medication Reconciliation: New oxycodone-acetaminophen [Percocet] 5-325 mg Tablet 1 tab PO Q4-6H PRN (Reason: severe pain.) Qty: 20 0RF Continued Gummies 400 mcg-35 mg- 25 mg-5 mg tablet,chewable 2 tab PO DAILY ferrous sulfate 325 mg (65 mg iron) tablet 325 mg PO DAILY Problem Reconciliation Problems Reviewed?: Yes Patient Discharge Instructions Additional Instructions: Nothing in the vagina for 6 weeks. No tub baths for 6 weeks. Clean surgical site 2x a day, keep area clean and dry. Drink plenty of fluids. Patient Instructions: Depression, Hemorrhage, DI for , Catheter-associated Urinary Tract Infection, [facility] Post Discharge Instructions Providers Primary Care Provider: Berny
== END 2022-03-01 14:00 | disposition home or self-care (01) | DRG 788 ==
PROVIDERS: Admitting Provider Nurse Practitioner Obstetrics & Gynecology; PCP Family Medicine; Visit Provider Nurse Practitioner Obstetrics & Gynecology
PROC: 10D00Z1 Extraction of Products of Conception, Low, Open Approach (ICD-10-PCS; CPT 59514; principal; 2022-02-27 07:30)
DX: O34.211 Maternal care for low transverse scar from previous cesarean delivery (principal); N85.8 Other specified noninflammatory disorders of uterus; Z3A.39 39 weeks gestation of pregnancy; Z37.0 Single live birth; L91.0 Hypertrophic scar; L90.5 Scar conditions and fibrosis of skin; O75.89 Other specified complications of labor and delivery; O69.81X0 Labor and delivery complicated by cord around neck, without compression, not applicable or unspecified; I86.8 Varicose veins of other specified sites; O36.63X0 Maternal care for excessive fetal growth, third trimester, not applicable or unspecified
CPT/HCPCS: 59514; 36415; 59025; 80053; 80305; 81001; 82962; 85007; 85014; 85018; 85025; 86850; 87086; 94761; C9290; C9803; G0283; J2405; U0003; U0005

== ENCOUNTER 2022-09-04 12:38 | Day surgery (SDC) | payer OTHER, SELFPAY ==
[2022-09-04] VITALS (16 sets, daily range): BP systolic 111–133; BP diastolic 65–84; PULSE 80–120; RESP 12–22; TEMP 36.5–43; O2SAT 96–100; BMI 23.6
--- NOTE | 2022-09-04 12:48 | [facility].EDGENADL ---
Discharge Plan Disposition Patient Disposition: Admitted As Inpatient Prescriptions Prescriptions: No Action cyclobenzaprine 10 mg tablet 10 mg PO TID PRN (Reason: muscle spasm) Qty: 30 0RF methylprednisolone 4 mg tablets,dose pack See Rx Instructions PO PER PKG DIR Qty: 21 0RF Rx Instructions: PO PER PKG DIR Mirena 20 mcg/24 hours (8 yrs) 52 mg intrauterine device intrauterine Referrals Follow up/Referrals: Acacia Urbina APRN [Primary Care Provider] - See instructions Clinical Impressions Clinical Impression: Acute appendicitis Instructions Patient Instructions: DI for Acute Abdominal Pain Discharge ED Provider: Magalis Santos General Adult HPI General Chief complaint: Abdominal Pain Stated complaint: lower right side abdominal pain Time Seen by Provider: 09/04/22 12:48 History of Present Illness HPI narrative: Patient is a 22-year-old female presenting with right lower quadrant abdominal pain. States that began yesterday evening was periumbilical in nature associated with nausea and nonfocal. States that it has since migrated to her right lower quadrant. Slowly worsening no sudden component of this. She has had some spotting vaginal bleeding she is on an IUD had a baby last January and this has been irregular since that time. Denies any vaginal discharge. Denies any changes in bowel movements or urination. Denies any history of kidney stones or ovarian pathology. Pain is moderate at the moment. Her significant other in the room states that she had significant pain with any bump in the car ride over here. No fevers or chills. No history of appendectomy. Related Data Home Medications Medication Instructions Recorded Confirmed levonorgestrel 21 mcg/24 hours (8 intrauterine 04/18/22 07/18/22 yrs) 52 mg intrauterine device (Mirena) Previous Rx's Medication Instructions Recorded cyclobenzaprine 10 mg tablet 10 mg PO TID PRN muscle spasm #30 07/18/22 tabs methylprednisolone 4 mg tablets in See Rx Instructions PO PER PKG DIR 07/18/22 a dose pack #21 tabs Allergies Allergy/AdvReac Type Severity Reaction Status Date / Time No Known Allergies Allergy Verified 07/18/22 15:07 [facility] Disclaimer: The information contained in this section may have been updated after the patient was seen, as this information can be updated by other users. Surgical History History of History of delivery, antepartum Family History Other Asthma Heart attack Hypertension Substance abuse Social History (Updated 09/04/22 @ 13:30 by Sujatha Metzger RN) Smoking Status: Never smoker alcohol intake: never substance use type: denies use current occupational status: unemployed Travel in the last 8 weeks: None household members: family housing: house ROS Obtained: Yes All systems reviewed & no additional complaints except as documented Physical Exam General General appearance: alert Respiratory Respiratory exam: Present normal lung sounds bilaterally; Absent respiratory distress, wheezes or stridor Cardiovascular Cardiovascular exam: Present regular rate; Absent tachycardia Abdominal Exam Abdominal exam: Present other (Right lower quadrant tenderness palpation no rebound or guarding negative Rovsing's and obturators) Neurological Exam Neurological exam: Present alert and oriented X3 Medical Decision Making Kelvin Inquiry Pt receiving controlled substance: No Vital Signs: 09/04/22 12:39 09/04/22 13:00 09/04/22 13:30 Temperature 97.7 F Temperature Source Oral Pulse Rate 114 H 102 H Pulse Rate [Radial] 92 H Respiratory Rate 16 22 22 Blood Pressure 117/84 127/80 Blood Pressure [Right Arm] 114/77 Blood Pressure Mean 95 94 Blood Pressure Mean [Right Arm] 89 Blood Pressure Source [Right Arm] Automatic Cuff
--- NOTE | 2022-09-04 12:49 | PC.NURSE ---
DR MARTINEZ AT BEDSIDE
--- NOTE | 2022-09-04 12:52 | CT_ITS ---
FINAL REPORT CLINICAL HISTORY: RLQ abd pain- concern for appendix FINDINGS: CT OF THE ABDOMEN AND PELVIS WITH CONTRAST Axial CT images of the abdomen and pelvis were obtained after the administration of oral and iv contrast. Coronal reformatted images were also obtained and reviewed.This study was performed with techniques to keep radiation doses as low as reasonably achievable (ALARA). Individualized dose reduction techniques using automated exposure control or adjustment of mA and/or kV according to the patient's size were employed. Abdomen: The lung bases are clear. The heart is normal in size. The liver has an unremarkable appearance, without evidence of mass or biliary ductal dilatation. There is mild nonspecific gallbladder wall thickening. The spleen is unremarkable. No adrenal mass is present. The pancreas has an unremarkable appearance. The kidneys are normal, without evidence of mass or hydronephrosis. The aorta is normal in caliber. There is no free fluid or adenopathy. No mass or abnormal fluid collection is seen. Pelvis: The GI tract is without obstruction. The appendix is mildly enlarged measuring up to 7 mm with wall thickening. Findings are worrisome for early or mild appendicitis. The urinary bladder is unremarkable. An IUD is present. There is no evidence of mass or adenopathy. There is a small amount of pelvic free fluid which may be physiologic or reactive. IMPRESSION: Mildly enlarged appendix with wall thickening worrisome for early or mild appendicitis. Reviewed, Interpreted and Dictated by Que Galeano III, MD Transcribed by Norma Contreras Authenticated and [facility]
[2022-09-04 12:57] LABS: Microscopic, Urine URINE MICROSCOPIC (MICROSCOPIC)
[2022-09-04 12:58] LABS: Appearance,Urine SL CLOUDY (Clear); Bilirubin,Urine Negative (Negative); Blood, Urine 2+ (Negative); Color,Urine YELLOW (Yellow); Glucose,Urine (UA) Negative (Negative); Ketones,Urine Negative (Negative); Leukocyte Esterase,Urine 1+ (Negative); Nitrate,Urine Negative (Negative); PH,Urine 6.5 (5.0-8.5); Protein,Urine Negative (Negative); Specific Gravity, Urine 1.025 (1.005-1.030); Urobilinogen,Urine 0.2 EU/dl (0.2)
[2022-09-04 13:04] LABS: Urine Pregnancy, HCG Qual. Negative (Negative)
--- NOTE | 2022-09-04 13:10 | PC.NURSE ---
PT TO CT
--- NOTE | 2022-09-04 13:10 | PC.NURSE ---
PT MEDICATED PER EMAR, WARM BLANKET PROVIDED. UPDATED ON POC, NO FURTHER NEEDS AT THIS TIME
[2022-09-04 13:14] LABS: Bacteria,Urine Trace /lpf; RBC,Urine Occasional #/hpf (0-3)
[2022-09-04 13:24] LABS: Basophils % 0.4 % (0.1-2.0); Eosinophils # 0.1 K/mm3 (0.0-0.4); Eosinophils % 1.6 % (0.1-12.0); Hematocrit 37.5 % (37.0-47.0); Hemoglobin 12.5 g/dL (12.2-16.2); Lymphocytes # 0.9 K/mm3 (0.7-4.5); Lymphocytes % 12.9 % (10-50); Mean Corpuscular HGB Conc 33.2 g/dL (31.8-35.4); Mean Corpuscular Hemoglobin 28.5 pg (27.0-31.2); Mean Corpuscular Volume 85.9 fl (81-99); Mean Platelet Volume 7.3 fl (7.4-10.4); Monocytes # 0.5 K/mm3 (0.1-1.0); Monocytes % 6.8 % (1.7-9.3); Neutrophils # 5.7 K/mm3 (1.8-7.8); Neutrophils % 78.3 % (37.0-80.0); Platelet Count 387 K/mm3 (142-424); Red Blood Count 4.37 M/mm3 (4.20-5.40); Red Cell Distribution Width 13.4 % (11.5-17.5); White Blood Count 7.2 K/mm3 (4.8-10.8)
[2022-09-04 13:27] LABS: Alanine Aminotransferase 17 U/L (12-78); Albumin Level 4.2 g/dl (3.5-5.0); Albumin/Globulin Ratio 1.6 (1.1-1.8); Alkaline Phosphatase 71 U/L (38-126); Anion Gap 6.4 mEq/L (5-15); Aspartate Amino Transferase 22 U/L (14-36); Bilirubin,Total 0.6 mg/dl (0.2-1.3); Blood Urea Nitrogen 15 mg/dl (7-17); Calcium 9.4 mg/dl (8.4-10.2); Carbon Dioxide 29 mmol/L (22.0-30.0); Chloride 106 mmol/L (98-107); Creatinine Clearance Estimated 104 mL/min (50-200); Estimated Glomerular Filt Rate 103 ml/min (>60); GFR (African American) 124 ML/MIN (>60); Globulin 2.7 g/dL (1.3-3.2); Glucose 125 mg/dl (74-100); Potassium 4.4 mmoL/L (3.5-5.1); Sodium 137 mmol/L (136-145); Total Protein,Serum 6.9 g/dl (6.3-8.2)
--- NOTE | 2022-09-04 13:57 | PC.NURSE ---
PT ASSISTED TO BR
--- NOTE | 2022-09-04 14:56 | PC.NURSE ---
contacted rad to check on status of Ct result, staff states scan are being read at this time
--- NOTE | 2022-09-04 15:22 | PC.NURSE ---
gave ER pt preliminary Ct reading at this time
--- NOTE | 2022-09-04 15:29 | PC.NURSE ---
PT ASSISTED TO BR
[2022-09-04 15:31] LABS: Coronavirus 19, PCR Not Detected (NotDetected); Influenza A, PCR Not Detected (NotDetected); Influenza B, PCR Not Detected (NotDetected)
--- NOTE | 2022-09-04 15:34 | PC.NURSE ---
DR. MARTINEZ AT BEDSIDE TO UPDATE PT ON POC
--- NOTE | 2022-09-04 15:37 | PC.NURSE ---
paged Dr Pool
--- NOTE | 2022-09-04 15:53 | PC.NURSE ---
DR MARTINEZ SPEAKING WITH DR HOFFMANN
--- NOTE | 2022-09-04 16:13 | PC.NURSE ---
CONSENT SIGNED FOR SURGERY
--- NOTE | 2022-09-04 16:24 | PC.NURSE ---
DR HOFFMANN AT BS
--- NOTE | 2022-09-04 16:24 | PC.NURSE ---
DR HOFFMANN AT BEDSIDE
--- NOTE | 2022-09-04 16:38 | EXP.GEN.HP ---
HPI HPI HPI: Patient is a 22-year-old healthy female who presents to the emergency department this afternoon for persistent abdominal pain. She had developed yesterday evening after work mid abdominal and periumbilical pain with some mild nausea. Pain was diffuse and mild. It then became more localized into the right lower quadrant. She presented to the emergency department where she was seen and evaluated. Work-up included CT scan which reveals findings reportedly consistent with early appendicitis. Surgical consultation was obtained. [facility] Disclaimer: The information contained in this section may have been updated after the patient was seen, as this information can be updated by other users. Surgical History History of History of delivery, antepartum Family History Other Asthma Heart attack Hypertension Substance abuse Social History (Updated 09/04/22 @ 13:30 by Sujatha Metzger RN) Smoking Status: Never smoker alcohol intake: never substance use type: denies use current occupational status: unemployed Travel in the last 8 weeks: None household members: family housing: house Meds Home Medications and Allergies Home Medications Medication Instructions Recorded Confirmed Type levonorgestrel 21 mcg/24 hours (8 intrauterine 04/18/22 07/18/22 History yrs) 52 mg intrauterine device (Mirena) cyclobenzaprine 10 mg tablet 10 mg PO TID PRN muscle spasm #30 07/18/22 07/18/22 Rx tabs methylprednisolone 4 mg tablets in See Rx Instructions PO PER PKG DIR 07/18/22 07/18/22 Rx a dose pack #21 tabs New Prescriptions to Start Prescriptions: Allergies Allergy/AdvReac Type Severity Reaction Status Date / Time No Known Allergies Allergy Verified 07/18/22 15:07 Exam Data for Last 24 hours Vital signs and Labs for Last 24 Hours: Temp Pulse Resp BP Pulse Ox 97.7 F 96 H 20 111/69 98 09/04/22 12:39 09/04/22 15:00 09/04/22 15:00 09/04/22 15:00 09/04/22 15:00 Laboratory Results - last 24 hr 09/04/22 12:45: Urine Color Yellow, Urine Appearance Sl cloudy, Urine pH 6.5, Ur Specific [place] 1.025, Urine Protein Negative, Urine Glucose (UA) Negative, Urine Ketones Negative, Urine Blood 2+, Urine Nitrate Negative, Urine Bilirubin Negative, Urine Urobilinogen 0.2, Ur Leukocyte Esterase 1+ A, Urine RBC Occasional, Urine WBC 3-5, Ur Squamous Epith Cells 3-5, Urine Bacteria Trace 09/04/22 12:45: Urine HCG, Qual Negative 09/04/22 13:00: WBC 7.2, RBC 4.37, Hgb 12.5, Hct 37.5, MCV 85.9, MCH 28.5, MCHC 33.2, RDW 13.4, Plt Count 387, MPV 7.3 L, Neut % (Auto) 78.3, Lymph % (Auto) 12.9, [place] % (Auto) 6.8, Eos % (Auto) 1.6, Baso % (Auto) 0.4, Neut # (Auto) 5.7, Lymph # (Auto) 0.9, [place] # (Auto) 0.5, Eos # (Auto) 0.1, Baso # (Auto) 0.0 09/04/22 13:00: Sodium 137, Potassium 4.4, Chloride 106, Carbon Dioxide 29, Anion Gap 6.4, BUN 15, Creatinine 0.70, Estimated Creat Clear 104, Estimated GFR 103, Est GFR ( Amer) 124, Glucose 125 H, Calcium 9.4, Total Bilirubin 0.6, AST 22, ALT 17, Alkaline Phosphatase 71, Total Protein 6.9, Albumin 4.2, Globulin 2.7, Albumin/Globulin Ratio 1.6 09/04/22 15:26: SARS-CoV-2 (PCR) Not detected, Influenza A Untype (PCR) Not detected, Influenza Type B (PCR) Not detected I & O for Last 24 hours: Intake & Output 09/02/22 09/03/22 09/04/22 09/05/22 11:59 11:59 11:59 11:59 Weight 117 lb Constitutional Constitutional: no acute distress *Routine HEENT Exam Head: Present normocephalic Eye: Present EOMI ENT: Present mucous membranes moist *Routine Respiratory Exam Respiratory: Present CTA bilaterally *Routine Cardiovascular Exam Cardiovascular: Present RRR *Routine Abdominal Exam Abdominal: Present soft Comments: She has some tenderness in the right lower quadrant with voluntary guarding. *Routine Rectal Exam Rectal::
--- NOTE | 2022-09-04 17:45 | PC.NURSE ---
SURGERY AT BEDSIDE TO TAKE PT TO OR
--- NOTE | 2022-09-04 18:40 | P.PN_ITS ---
[facility] Disclaimer: The information contained in this section may have been updated after the patient was seen, as this information can be updated by other users. Surgical History History of History of delivery, antepartum Family History Other Asthma Heart attack Hypertension Substance abuse Social History (Updated 09/04/22 @ 13:30 by Sujatha Metzger RN) Smoking Status: Never smoker alcohol intake: never substance use type: denies use current occupational status: unemployed Travel in the last 8 weeks: None household members: family housing: house [facility] Anesthesia Checklist Patient Identification Patient Identification: Verbal (Name & ) Structural Data Admitted From: Emergency Dept Planned Operative Procedure/s: lap appy Consent for Planned Operative Procedure(s) Verified: Yes NPO Status Verified Time NPO: 11:00 Additional verifications Hx Blood Transfusions: Yes Airway Assessment C-Spine Mobility Assessed: Yes TMJ Mobility Assessed: Yes Dentition: Good Dentition Neurological Assessment Level of Consciousness: Awake, Alert and Appropriate Anesthesia Plan Anesthesia Risk discussed: Yes Anesthesia Plan: Verified ASA Class: I Anesthesia Type: General
--- NOTE | 2022-09-04 18:58 | EXP.OP.NOTE ---
Date of procedure: 09/04/22 Pre-op Diagnosis:: Acute appendicitis Post-op Diagnosis:: Same Procedure performed:: Laparoscopic appendectomy Surgeon:: Que Pool MD FLAME BRAZING MACHINE OPERATOR:: Shaq Beckman Anesthesia: GETA Estimated blood loss (mL): 10 Operative findings:: She had a somewhat edematous mildly indurated injected appendix consistent with early uncomplicated appendicitis. Operative note:: Consent was obtained and patient was taken to the operating room. She was positioned in a supine position. General anesthesia was induced via endotracheal tube. Gregory catheter was placed. Abdomen was prepped and draped in the standard surgical fashion. Subumbilical skin incision was made and while performing abdominal wall lift Veress needle was inserted. CO2 pneumoperitoneum was achieved to 15 mmHg. 12 mm optical trocar was inserted at the umbilicus. Intraperitoneal contents were visualized. She did have some pelvic adhesions from prior . She had 5 mm trocar inserted in the left lower abdomen due to adherent to enlarged uterus. 5 mm trocar was inserted in the right upper abdomen. 10 mm laparoscope was replaced with a 5 mm 30 degree laparoscope. Appendix was easily identified. It was edematous and somewhat indurated and injected. It was grasped with an endoscopic Laina. The mesoappendix was carefully divided with AMOL ultrasonic robotic eb. Dissection was carried down to the appendiceal base. The appendix was divided at its base with an endoscopic HERBIE linear cutting stapling device. Appendix was placed within an Endo Catch retrieval device removed from the peritoneal cavity via the umbilical trocar site. Very limited irrigation and suctioning was performed. There was good hemostasis and integrity of the staple line at the appendiceal stump. Trocars were then removed as CO2 pneumoperitoneum was evacuated. Fascia at the umbilicus was closed with a couple of interrupted 0 Vicryl sutures. Local anesthetic was infiltrated. Skin incision was closed with 4-0 Monocryl subcuticular fashion. Dermabond and dressings were applied. Condition: stable Disposition: PACU Complications:: None immediately apparent
--- NOTE | 2022-09-04 19:07 | EXP.ANES.I ---
[facility] Anesthesia Record Part I Anesthesia Record I Intake, IV Amount: 1,500 Estimated blood loss (mL): 0 Urine output (mL): 100 Blood Pressure: 124/74 SaO2: 96 Pulse Rate: 100 Respiratory Rate: 12 Temperature: 98 F Patient is:: Awake and Stable Stable to PACU at:: 19:05
[2022-09-04 22:12] LABS: Microscopic,Cath URINE MICROSCOPIC (MICROSCOPIC)
[2022-09-04 22:19] LABS: Appearance,Urine/Cath CLEAR (Clear); Bilirubin,Cath Negative (Negative); Blood, Urine/Cath Negative (Negative); Color,Urine/Cath YELLOW (Yellow); Glucose,Urine/Cath (UA) Negative (Negative); Ketones,Urine/Cath TRACE (Negative); Leukocyte Esterase,Cath Negative (Negative); Nitrate,Cath Negative (Negative); PH,Urine/Cath 6.5 (5.0-8.5); Protein,Urine/Cath Negative (Negative); Urobilinogen,Cath 0.2 EU/dl (0.2)
[2022-09-04 22:29] LABS: WBC,Urine/Cath Occasional #/hpf (0-3)
[2022-09-08 16:12] VITALS: BP 116/80; PULSE 80; TEMP 36.6
--- NOTE | 2022-09-08 16:12 | EXP.ANES.II ---
[facility] Anesthesia Record Part II Anesthesia Record Part II Discharge Time: 19:35 Destination: Surgical Day Care (OP Surgery) PACU nurse assessment reviewed?: Yes Patient Condition:: Good Anesthesia Complications:: None Swallowing reflex intact?: Yes Cyanosis?: No Blood Pressure: 116/80 Pulse Rate: 80 Temperature: 98 F Mental Status: Alert & Oriented Pain level:: 0 Nausea and/or vomitting:: None Intake, IV Amount: 0
== END 2022-09-04 20:15 | disposition home or self-care (01) ==
LOC: ER 15:37 → SDC 18:36
PROVIDERS: Emergency Provider Student in an Organized Health Care Education/Training Program; PCP Nurse Practitioner; Visit Provider Surgery
PROC: 0DTJ4ZZ Resection of Appendix, Percutaneous Endoscopic Approach (ICD-10-PCS; CPT 44970; principal; 2022-09-04 18:00)
DX: K35.80 Unspecified acute appendicitis (principal)
CPT/HCPCS: 47562; 74177; 80053; 81001; 81025; 85025; 87086; 96374; C9803; J2405; J2710; Q9967; U0003; U0005

== ENCOUNTER 2023-03-16 11:54 | Emergency (ER) | payer OTHER, SELFPAY ==
[2023-03-16 11:56] VITALS: BP 108/77; PULSE 89; RESP 17; TEMP 36.9; O2SAT 100; BMI 24.2
--- NOTE | 2023-03-16 12:10 | HMH.EDGENADL ---
Discharge Plan Disposition Patient Disposition: Home, Self-Care Prescriptions Prescriptions: No Action Mirena 20 mcg/24 hours (8 yrs) 52 mg intrauterine device intrauterine Referrals Follow up/Referrals: Acacia Urbina APRN [Primary Care Provider] - See instructions Activity Restrictions/Add. Instructions Additional Instructions/Restrictions: Take [id number] medications for supportive care including Tylenol and ibuprofen as discussed return with any worsening symptoms such as shortness of breath etc. Clinical Impressions Clinical Impression: COVID-19 Discharge ED Provider: Magalis Santos General Adult HPI General Stated complaint: covid+, body aches, fever, cough, congestion Time Seen by Provider: 03/16/23 12:05 History of Present Illness HPI narrative: 23-year-old previously healthy female here for a COVID test. States that she has been symptomatic for 24 hours with body aches fever cough congestion and took a home COVID test that was positive. She states that her job required her to have a PCR test for any type of leave of absence therefore she came to the emergency department to get a COVID test. She denies any shortness of breath she states that she is feeling somewhat better at this moment. Denies any other symptoms. Related Data Home Medications Medication Instructions Recorded Confirmed levonorgestrel 21 mcg/24 hours (8 intrauterine 04/18/22 09/26/22 yrs) 52 mg intrauterine device (Mirena) Allergies Allergy/AdvReac Type Severity Reaction Status Date / Time No Known Allergies Allergy Verified 09/26/22 09:29 [facility] Disclaimer: The information contained in this section may have been updated after the patient was seen, as this information can be updated by other users. Surgical History History of appendectomy History of History of delivery, antepartum Family History Other Asthma Heart attack Hypertension Substance abuse Social History Smoking Status: Never smoker alcohol intake: never substance use type: denies use current occupational status: unemployed Travel in the last 8 weeks: None household members: family housing: house ROS Obtained: Yes All systems reviewed & no additional complaints except as documented Physical Exam General General appearance: alert Chest Chest inspection: Present normal inspection and symmetric chest wall rise Respiratory Respiratory exam: Present other (Ox saturations 99% on room air); Absent respiratory distress Cardiovascular Cardiovascular exam: Present regular rate; Absent tachycardia Neurological Exam Neurological exam: Present alert and oriented X3 Medical Decision Making Kelvin Inquiry Pt receiving controlled substance: No Orders (Tests/Meds): ORDERS Category Date Time Status Rapid PCR Covid and Flu A/B Stat Lab 03/16/23 12:09 Ordered Medical Decision Narrative: Well-appearing 23-year-old in no distress with normal respiratory effort here with a viral syndrome consistent with COVID-19 at home positive test. Getting a PCR test will not change emergent management but will obtain this for the patient's needs with work. COVID test has been ordered patient will be discharged. Supportive care discussed she is not a candidate for antiviral therapy as she is very low risk does not need Paxlovid. Critical Care Critical Care Time Critical Care Time: No
[2023-03-16 12:12] LABS: Influenza A, PCR Not Detected (NotDetected); Influenza B, PCR Not Detected (NotDetected)
[2023-03-16 12:30] VITALS: BP 105/78; PULSE 102; O2SAT 99
[2023-03-16 12:36] LABS: Coronavirus 19, PCR Detected (NotDetected)
[2023-03-16 12:42] VITALS: BP 105/78; PULSE 88; RESP 17; TEMP 36.9; O2SAT 98
== END 2023-03-16 12:44 | disposition home or self-care (01) ==
PROVIDERS: Emergency Provider Student in an Organized Health Care Education/Training Program; PCP Nurse Practitioner
DX: U07.1 COVID-19 (principal); R50.9 Fever, unspecified
CPT/HCPCS: 87636; 99283

== ENCOUNTER 2023-12-10 17:41 | Emergency (ER) | payer BC, SELFPAY ==
[2023-12-10 18:00] VITALS: BP 121/75; PULSE 87; RESP 18; TEMP 36.6; O2SAT 100; BMI 24.2
--- NOTE | 2023-12-10 18:16 | ED_ITS ---
Discharge Plan Disposition Patient Disposition: Home, Self-Care Condition: Good Prescriptions Prescriptions: New cyclobenzaprine 10 mg Tablet 10 mg PO BID PRN (Reason: Muscle Spasm) Qty: 20 0RF methylprednisolone 4 mg Tablets,Dose Pack 4 mg PO DIRECTED 6 Days Qty: 21 0RF Rx Instructions: Take 1 pack as directed for 6 days No Action Mirena 20 mcg/24 hours (8 yrs) 52 mg intrauterine device 1 device intrauterine ONCE Referrals Follow up/Referrals: Acacia Urbina APRN [Primary Care Provider] - See instructions Activity Restrictions/Add. Instructions Additional Instructions/Restrictions: Go home and rest. It would be best if you rested tomorrow too. No heavy lifting. No twisting. The muscle relaxer (cyclobenzaprine--Flexeril) will make you drowsy, so don't drive or operate heavy machinery after taking it. Don't start the oral steroids (medrol dose pack) until tomorrow, since you had the shots in here today. Follow up with your regular doctor. GO TO THE ER FOR ANY WORSENING SYMPTOMS OR CONCERN, ESPECIALLY BOWEL OR BLADDER ISSUES, SADDLE AREA NUMBNESS, FEVER, ETC Clinical Impressions Clinical Impression: Acute low back pain with sciatica Stand Alone Forms Stand Alone Forms: Work/School Release Instructions Patient Instructions: DI for Low Back Pain, DI for Sciatica, Cyclobenzaprine, Methylprednisolone, Ketorolac Injection, Dexamethasone Injection Discharge ED Provider: Roger Nicholas [facility] General Stated complaint: back pain, no accident Mode of Arrival: Ambulatory Source of Information: Patient Limitations: No Limitations Time Seen by Provider: 12/10/23 18:16 Description of Symptoms (Recalled from Triage Doc. by RN): Pt has back pain that runs down her leg. She describes the pain and sharp and shooting. HEENT Symptoms (Recalled from RN notes): No Resp Symptoms (Recalled from RN notes): No Skin Symptoms (Recalled from RN notes): No MS Symptoms (Recalled from RN notes): Yes Functional Status (Recalled from RN notes): n/a History of Present Illness Provider Complaint: She states that for the past 2 days she has had low back pain that radiates down her left leg. She denies any fall or trauma. She states that her symptoms began after she bent over and twisted to reach something. She denies any urinary symptoms. Related Data Home Medications Medication Instructions Recorded Confirmed levonorgestrel 21 mcg/24 hr (up to 1 device intrauterine ONCE 04/18/22 09/26/22 8 years) 52 mg intrauterine device (Mirena) Previous Rx's Medication Instructions Recorded cyclobenzaprine 10 mg tablet 10 mg PO BID PRN Muscle Spasm #20 12/10/23 tabs methylprednisolone 4 mg tablets in 4 mg PO DIRECTED 6 days #21 tabs 12/10/23 a dose pack Allergies Allergy/AdvReac Type Severity Reaction Status Date / Time No Known Allergies Allergy Verified 12/10/23 18:08 Worker's Comp Is this a Worker's Comp case?: No [facility] Disclaimer: The information contained in this section may have been updated after the patient was seen, as this information can be updated by other users. Surgical History History of appendectomy History of History of delivery, antepartum Family History Other Asthma Heart attack Hypertension Substance abuse Social History Smoking Status: Never smoker alcohol intake: never substance use type: denies use current occupational status: unemployed Travel in the last 8 weeks: None household members: family housing: house ROS Obtained: Yes All systems reviewed & no additional complaints except as documented Constitutional Constitutional: Denies chills and Denies fever(s) Eyes Eyes: Denies eye discharge ENT Ears, Nose, Mouth, and Throat: Denies dizziness, Denies otalgia, Denies neck pain and Denies sore throat Cardiovascular Cardiovascular: Denies chest pain Respiratory Respiratory: Denies shortness of breath, Denies chest congestion, Denies cough, Denies stridor and Denies wheezing Gastrointestinal Gastrointestingal: Denies nausea or vomiting Genitourinary Female Genitourinary: Reports as per HPI, Denies dysuria, Denies urinary frequency, Denies urinary incontinence, Denies urinary hesitancy and Denies urinary urgency Musculoskeletal Musculoskeletal: Reports as per HPI, Reports back pain and Denies neck pain Integumentary/Breasts Skin/Breast: Denies rash Neurologic Neurologic: Denies dizziness and Denies paresthesias Allergic/Immunologic Allergic/Immunologic: Denies wheezing Physical Exam General General appearance: alert and in no apparent distress Head Head exam: atraumatic, normocephalic and normal inspection Eye Eye exam: Present normal appearance, PERRL and EOMI ENT ENT exam: Present normal exam, normal oropharynx, mucous membranes moist, TM's normal bilaterally and normal external ear exam Neck Neck exam: Present normal inspection, full ROM and trachea midline; Absent meningismus or lymphadenopathy Chest Chest inspection: Present normal inspection and symmetric chest wall rise; Absent tenderness Respiratory Respiratory exam: Present normal lung sounds bilaterally; Absent respiratory distress Cardiovascular Cardiovascular exam: Present regular rate and normal rhythm; Absent JVD Abdominal Exam Abdominal exam: Present soft and normal bowel sounds; Absent distention, tenderness or guarding Extremities Exam Extremities exam: Present normal inspection, full ROM and normal capillary refill; Absent calf tenderness Back Exam Back exam: Present normal inspection; Absent tenderness, CVA tenderness (R), CVA tenderness (L), muscle spasm, paraspinal tenderness, vertebral tenderness, rashes, sciatic notch tenderness (R), sciatic notch tenderness (L), straight leg raise (R) or straight leg raise (L) Neurological Exam Neurological exam: Present alert, oriented X3, CN II-XII intact, normal gait and reflexes normal; Absent motor sensory deficit Psychiatric Psychiatric exam: Present normal affect and normal mood Skin Skin exam: Present warm, dry, intact and normal color Lymphatic Lymphatic Findings: no adenopathy Medical Decision Making Medical Records Medical records reviewed: No I reviewed the patient's medical records. Kelvin Inquiry Pt receiving controlled substance: No Vital Signs: 12/10/23 18:00 Temperature 97.9 F Temperature Source Oral Pulse Rate [Right Radial] 87 Respiratory Rate 18 Blood Pressure [Right Arm] 121/75 Blood Pressure Mean [Right Arm] 90 Blood Pressure Source [Right Arm] Automatic Cuff Blood Pressure Position [Right Arm] Sitting 02 Sat by Pulse Oximetry 100 Oxygen Delivery Method Room Air
[2023-12-10] MEDS: KETOROLAC 60MG/2ML VIAL 60 MG IM (18:36)
[2023-12-10] MEDS: DEXAMETHASONE 4MG/ML 1ML VIAL 8 MG IM (18:36)
[2023-12-10 19:17] VITALS: BP 121/75; PULSE 87; RESP 18; TEMP 36.6; O2SAT 100
== END 2023-12-10 19:17 | disposition home or self-care (01) ==
PROVIDERS: Emergency Provider Nurse Practitioner Family; PCP Nurse Practitioner
DX: M54.42 Lumbago with sciatica, left side (principal)
CPT/HCPCS: 96372; 99212; 99214; G0463; J1100; J1885

== ENCOUNTER 2024-04-09 12:46 | Emergency (ER) | payer BC, SELFPAY ==
--- NOTE | 2024-04-09 12:56 | ED_ITS ---
Discharge Plan Disposition Patient Disposition: Home, Self-Care Condition: Good Prescriptions Prescriptions: New polymyxin B sulf-trimethoprim 10,000 unit- 1 mg/mL drops 1 drp Eye-Right Q3H 7 Days Qty: 10 0RF Rx Instructions: while awake; do not exceed 6 doses in 24 hours azithromycin [Zithromax] 250 mg tablet 250 mg PO UD DOSE PK Qty: 6 0RF Rx Instructions: Take two (2) tablets today, then one (1) tablet days #2 thru #5 methylprednisolone 4 mg Tablets,Dose Pack 4 mg PO DIRECTED 6 Days Qty: 21 0RF Rx Instructions: Take 1 pack as directed for 6 days [id number] [Bromfed DM] 2-30-10 mg/5 mL Syrup 5 ml PO Q6H PRN (Reason: Cough) Qty: 240 0RF No Action Mirena 20 mcg/24 hours (8 yrs) 52 mg intrauterine device 1 device intrauterine ONCE Referrals Follow up/Referrals: Acacia Urbina APRN [Primary Care Provider] - See instructions Activity Restrictions/Add. Instructions Additional Instructions/Restrictions: Drink plenty of fluids. Take tylenol or ibuprofen for pain or fever. Take the medications as directed. Follow up with your regular doctor. GO TO THE ER FOR ANY WORSENING SYMPTOMS Use the eye drops as directed. Strict hand washing in the house hold, because conjunctivitis is very contagious. Follow up with your regular doctor. Clinical Impressions Clinical Impression: Pharyngitis, Conjunctivitis of right eye Stand Alone Forms Stand Alone Forms: Work/School Release Instructions Patient Instructions: How to Instill Eye Drops, DI for Pharyngitis/Tonsillopharyngitis -- Adult, DI for Conjunctivitis Print Language Print Language: Mongolian Discharge ED Provider: Roger Nicholas [facility] [place] HPI General Stated complaint: sore throat, congestion, red and swellin to R eye Time Seen by Provider: 04/09/24 12:56 History of Present Illness Provider Complaint: She states that for the past 2 days she has had worsening sore throat, sinus congestion and a cough. Since yesterday she has had right eye redness, irritation, with yellowish discharge. She denies any eye injury or foreign body. Related Data Home Medications ?Medication ?Instructions ?Recorded ?Confirmed levonorgestrel 21 mcg/24 hr (up to 1 device intrauterine ONCE 04/18/22 04/09/24 8 years) 52 mg intrauterine device (Mirena) Previous Rx's ?Medication ?Instructions ?Recorded azithromycin 250 mg tablet 250 mg PO UD DOSE PK #6 tabs 04/09/24 (Zithromax) jyjodqzqsizxenv-wxjgclzeaznrkhz-LL 5 ml PO Q6H PRN Cough #240 mL 04/09/24 2 mg-30 mg-10 mg/5 mL oral syrup (Bromfed DM) methylprednisolone 4 mg tablets in 4 mg PO DIRECTED 6 days #21 tabs 04/09/24 a dose pack polymyxin B sulfate 10,000 1 drp Eye-Right Q3H 7 days #10 mL 04/09/24 unit-trimethoprim 1 mg/mL eye drops Allergies Allergy/AdvReac Type Severity Reaction Status Date / Time No Known Allergies Allergy Verified 12/10/23 18:08 [facility] Disclaimer: The information contained in this section may have been updated after the patient was seen, as this information can be updated by other users. Surgical History History of appendectomy History of History of delivery, antepartum Family History Other Asthma Heart attack Hypertension Substance abuse Social History Smoking Status: Never smoker alcohol intake: never substance use type: denies use current occupational status: unemployed Travel in the last 8 weeks: None household members: family housing: house ROS Obtained: Yes All systems reviewed & no additional complaints except as documented Constitutional Constitutional: Reports chills and Reports fever(s) Eyes Eyes: Denies eye discharge ENT Ears, Nose, Mouth, and Throat: Reports as per HPI Cardiovascular Cardiovascular: Denies chest pain Respiratory Respiratory: Denies chest congestion and Reports cough Gastrointestinal Gastrointestingal: Reports nausea; Denies abdominal pain, constipation, cramping, diarrhea or vomiting Musculoskeletal Musculoskeletal: Denies arthralgias Integumentary/Breasts Skin/Breast: Denies rash Neurologic Neurologic: Denies paresthesias Physical Exam General General appearance: alert and in no apparent distress Head Head exam: atraumatic, normocephalic and normal inspection Eye Eye exam: Present normal appearance, PERRL and EOMI ENT ENT exam: Present mucous membranes moist and normal external ear exam Expanded ENT Exam TM/Canal exam: Bilateral TM: erythema and bulging Nose exam: Absent sinus tenderness Mouth exam: Present normal external inspection; Absent drooling Teeth exam: Present normal inspection Throat exam: Present tonsillar erythema, tonsillomegaly and tonsillar exudate Neck Neck exam: Present normal inspection, full ROM and trachea midline; Absent tenderness, meningismus or lymphadenopathy Chest Chest inspection: Present normal inspection and symmetric chest wall rise; Absent tenderness Respiratory Respiratory exam: Present normal lung sounds bilaterally; Absent respiratory distress, wheezes, stridor or accessory muscle use Cardiovascular Cardiovascular exam: Present regular rate and normal rhythm; Absent systolic murmur or diastolic murmur Abdominal Exam Abdominal exam: Present soft and normal bowel sounds; Absent distention, tenderness, guarding, rebound or rigidity Extremities Exam Extremities exam: Present normal inspection and normal capillary refill; Absent calf tenderness Back Exam Back exam: Present normal inspection and full ROM; Absent tenderness, CVA tenderness (R) or CVA tenderness (L) Neurological Exam Neurological exam: Present alert, oriented X3 and CN II-XII intact Psychiatric Psychiatric exam: Present normal affect and normal mood Skin Skin exam: Present warm, dry, intact and normal color Medical Decision Making Medical Records Medical records reviewed: No I reviewed the patient's medical records. Screening: Per USPSTF and CDC recommendations, given the prevalence of disease in our region, it is our hospital?s policy to screen for HIV and viral Hepatitis for all patients aged 18 and over and those with ongoing risk factors. Kelvin Inquiry Pt receiving controlled substance: No Lab Data Lab results reviewed: Yes I reviewed the patient's lab results.
[2024-04-09 12:59] VITALS: BP 118/70; PULSE 99; RESP 18; TEMP 36.8; O2SAT 100; BMI 25.7
[2024-04-09 13:10] LABS: UTC Strep Screen (Rapid) Negative (Negative)
[2024-04-09 13:25] VITALS: BP 118/70; PULSE 99; RESP 20; TEMP 36.8
== END 2024-04-09 13:29 | disposition home or self-care (01) ==
PROVIDERS: Emergency Provider Nurse Practitioner Family; PCP Nurse Practitioner
DX: J02.9 Acute pharyngitis, unspecified (principal); H10.33 Unspecified acute conjunctivitis, bilateral
CPT/HCPCS: 87880; 99213; G0381